=== PATIENT | female | born 1980 | race Caucasian/White ===

== ENCOUNTER 2021-05-21 12:55 | Outpatient (REF) | payer OTHER, SELFPAY ==
--- NOTE | ~2021-05-21 | US_ITS ---
EXAMINATION: US THYROID CLINICAL INFORMATION: Hypothyroidism. COMPARISON: Ultrasound soft tissue head/neck thyroid dated 02/15/2019. TECHNIQUE: Linear transducer grayscale and color Doppler examination with attention to the region of the thyroid. FINDINGS: SIZE: Measurements of the thyroid lobes and nodules are given in sagittal, anteroposterior and transverse dimensions respectively. Right Thyroid Lobe: 5.2 x 1.8 x 2.1 cm, volume 10.2 mL. Previously 5.2 x 1.6 x 1.7 cm, volume 7.4 mL. Parenchyma: The gland echotexture is homogeneous. Thyroid vascularity is normal. Left Thyroid Lobe: Surgically removed. Isthmus: 0.2 cm in maximum AP dimension. Previously 0.2 cm. Comparison with previous exam is difficult. Estimated total number of nodules greater than or equal to 1 cm: 1. Fpga Design Engineer nodules are described as follows: 1. Location: Right mid. Size: 0.3 x 0.4 x 0.3 cm, volume 0.02 mL. Previously: n/a Nodule characteristics: Composition: Mixed cystic and solid (1). Echogenicity: Hypoechoic (2). Shape: Not taller than wide (0). Margins: Smooth (0). Echogenic Foci: None (0). ACR TI-RADS total points: 3 Previous: n/a ACR TI-RADS category: 3 Previous: n/a Significant change in size (>/= 20% in 2 dimensions and minimal increase of 2 mm or 50% or greater increase in volume): Change in features: Change in ACR TI-RADS risk category: n/a 2. Location: Right mid. Size: 1.0 x 1.1 x 0.9 cm, volume 0.5 mL. Previously: 1.2 x 0.8 x 0.9 cm, volume 0.3 mL. Nodule characteristics: Composition: Mixed cystic and solid (1). Echogenicity: Hypoechoic (2). Shape: Not taller than wide (0). Margins: Smooth (0). Echogenic Foci: None (0). ACR TI-RADS total points: 3 Previous: n/a ACR TI-RADS category: 3 Previous: n/a Significant change in size (>/= 20% in 2 dimensions and minimal increase of 2 mm or 50% or greater increase in volume): Change in features: Change in ACR TI-RADS risk category: n/a 3. Location: Right superior. Size: 0.5 x 0.4 x 0.3 cm, volume 0.03 mL. Previously: n/a. Nodule characteristics: Composition: Cystic(0). ACR TI-RADS total points: 0 ACR TI-RADS category: 1 NODES: No lymphadenopathy is seen in the tissue surrounding the thyroid gland. US/US thyroid IMPRESSION: Comparison with previous exam is difficult. The dominant 1 cm nodule in the right middle lobe does not appear appreciably changed. There are 2 newly appreciated nodules in the mid and superior right lobe and the previously identified nodules in the mid and lower right lobe on prior exam are not appreciated. ACR TI-RADS RECOMMENDATION REFERENCE: Ultrasound-guided fine-needle aspiration, followup ultrasound, no further follow up. * TR1 (0 point) and TR 2 (2 points): No FNA or follow up * TR3 (3 points): FNA if more than or equal to 2.5 cm in maximum dimension, followup ultrasound in 1, 3 and 5 years if 1.5 to 2.4 cm in maximum dimension. * TR4 (4-6 points): FNA if more than or equal to 1.5 cm in maximum dimension, followup ultrasound in 1, 2, 3 and 5 years if 1 to 1.4 cm in maximum dimension. * TR5 (more than or equal to 7 points): FNA if more than or equal to 1 cm in maximum dimension, followup ultrasound every year for 5 years if 0.5 to 0.9 cm in maximum dimension. * TR3, TR4 or TR5 nodules that are below the size threshold for follow up receive no follow up.
== END 2021-05-21 12:56 | disposition home or self-care (01) ==
LOC: HO.US 12:55
PROVIDERS: Visit Provider Internal Medicine
DX: E03.9 Hypothyroidism, unspecified (principal)
CPT/HCPCS: 76536

== ENCOUNTER → 2021-10-16 08:37 | Outpatient (BNVA) | payer OTHER, SELFPAY | PROVIDERS: PCP Physician Assistant; Visit Provider Internal Medicine ==

== ENCOUNTER 2022-01-22 12:25 | Outpatient (REF) | payer OTHER, SELFPAY ==
--- NOTE | 2022-01-22 12:31 | ECG_ITS ---
Test Reason : PREOP Blood Pressure : / mmHG Vent. Rate : 075 BPM Atrial Rate : 075 BPM P-R Int : 134 ms QRS Dur : 082 ms QT Int : 358 ms P-R-T Axes : 025 042 021 degrees QTc Int : 399 ms Normal sinus rhythm Normal ECG No previous ECGs available Referred By: Michael Snadhu Electronically Signed By:FELICIANO TIWARI MD
[2022-01-22 12:48] LABS: MANUAL DIFF FLAG NO
[2022-01-22 13:05] LABS: Basophils Percent Auto 0.6 % (0-2); Eosinophils Absolute Auto 0.2 X10*3/uL (0.0-0.4); Hematocrit 40.8 % (37.0-47.0); Hemoglobin 12.8 g/dl (12.0-16.0); Imm Gran Abs Auto 0.02 X10*3/uL (0.00-0.03); Imm Gran Pct Auto 0.4 % (0.0-0.4); Lymphocytes Percent Auto 38.1 % (20-40); Mean Corpuscular HGB Conc 31.4 g/dl (31.0-35.0); Mean Corpuscular Hemoglobin 25.5 pg (27.0-33.0); Mean Corpuscular Volume 81.3 fL (80.0-98.0); Mean Platelet Volume 9.6 fL (9.4-12.3); Monocytes Absolute Auto 0.4 X10*3/uL (0.1-1.2); Monocytes Percent Auto 6.6 % (2-11); Neutrophils Absolute Auto 2.7 x10*3/uL (2.0-8.3); Neutrophils Percent Auto 51.3 % (45-73); Platelet Count 288 X10*3/uL (160-400); Red Blood Count 5.02 X10*6/uL (4.20-5.50); Red Cell Distribution Width 14.5 % (11.0-16.0); White Blood Count 5.3 X10*3/uL (4.8-10.8)
[2022-01-22 13:09] LABS: Prothrombin Time 11.8 SEC (9.9-13.0)
[2022-01-22 13:40] LABS: Alanine Aminotransferase 11 U/L (0-31); Albumin Level 4.3 g/dL (3.5-5.0); Alkaline Phosphatase 95 U/L (39-117); Anion Gap 14 (12-20); Aspartate Amino Transferase 14 U/L (5-31); Bilirubin Total 0.3 mg/dL (0.0-1.0); Blood Urea Nitrogen 10 mg/dL (9-16); Calcium 9.7 mg/dL (8.4-10.2); Carbon Dioxide 23 mmol/L (22-29); Chloride 104 mmol/L (96-108); Estimated Glomerular Filt Rate > 60; Glucose Fasting 105 mg/dL (60-99); Potassium 4.5 mmol/L (3.3-5.1); Sodium 136 mmol/L (135-145); Total Protein 7.8 g/dL (6.5-8.0)
[2022-01-22 13:51] LABS: Vitamin D 25-OH Total 10.2 ng/mL (>30)
[2022-01-22 14:01] LABS: HCG Quantitative < 2 mIU/mL; T4 Thyroxine 8.5 ug/dL (4.5-12.0)
[2022-01-22 14:14] LABS: Estimated Average Glucose 126 mg/dL
[2022-01-23 08:43] LABS: HIV AB/AG Nonreactive (Nonreactive); HIV Num 1 0.05 S/CO (0.00-0.99)
[2022-01-24 01:11] LABS: Triiodothyronine T3 Free 2.9 pg/mL (2.3-4.2)
== END 2022-01-22 12:26 | disposition home or self-care (01) ==
LOC: HO.LAB 12:25
PROVIDERS: Internal Medicine; PCP Physician Assistant; Visit Provider Physician Assistant
DX: Z01.818 Encounter for other preprocedural examination (principal); Z11.4 Encounter for screening for human immunodeficiency virus [HIV]; E55.9 Vitamin D deficiency, unspecified
CPT/HCPCS: 36415; 80053; 82306; 83036; 84436; 84443; 84481; 84702; 85025; 85610; 87389; 93005

== ENCOUNTER 2022-12-23 08:59 | Outpatient (REF) | payer OTHER, SELFPAY ==
[2022-12-23 10:19] LABS: Free T4 (Free Thyroxine) 0.91 ng/dL (0.71-1.85); Thyroid Stimulating Hormone 2.68 uIU/mL (0.32-4.0)
== END 2022-12-23 09:00 | disposition home or self-care (01) ==
LOC: HO.LAB 08:59
PROVIDERS: PCP Physician Assistant; Visit Provider Internal Medicine
DX: E04.2 Nontoxic multinodular goiter (principal)
CPT/HCPCS: 36415; 84439; 84443

== ENCOUNTER 2023-01-12 | Outpatient (REF) | payer OTHER, SELFPAY | END 2023-01-12 00:01 | disposition home or self-care (01) | LOC: CF | PROVIDERS: PCP Physician Assistant; Visit Provider Internal Medicine | DX: E04.2 Nontoxic multinodular goiter (principal); E03.9 Hypothyroidism, unspecified; E55.9 Vitamin D deficiency, unspecified | CPT/HCPCS: 99212 ==

== ENCOUNTER 2023-08-13 10:27 | Outpatient (AMB) | payer OTHER, SELFPAY ==
[2023-08-13 10:38] VITALS: BP 162/110; PULSE 89; O2SAT 100; BMI 37.1
--- NOTE | 2023-08-13 10:38 | MHC.PC.OV ---
Vital Signs 08/13/23 10:38 08/13/23 11:06 Height 5 ft 5 in Weight 223 lb 0.6 oz BMI 37.1 BP 162/110 H 170/102 H Blood Pressure Location Lt brachial Lt brachial Position Sitting Sitting Pulse 89 Pulse Source Pulse Oximeter Pulse Oximetry (%) 100 Oxygen Delivery Method Room Air Intake Visit Reasons: Chronic fatigue and malaise Intake Note: pt states senior care chronic fatigue with no relief. pt states loss of vision, blurry vision and headaches [id number], pt states bilateral leg swelling and soreness Telephone Triage Nurse Required: No Allergies penicillin G Allergy (Unknown, Verified 08/13/23 10:55) Unknown Medication List - Last Reconciled 08/13/23 by BERNARDO Loya hydrochlorothiazide 12.5 mg PO DAILY 90 days Tobacco use date assessed: 08/13/23 HPI Chronic fatigue and malaise HPI Details Patient is a 43-year-old female who presents today for the same day visit due to chronic fatigue. Patient of MARK Sandhu. medical history significant for hypothyroidism vitamin-D deficiency, iron deficiency anemia-patient reports she stopped iron long time ago-due to unable to tolerate, chronic fatigue, hypertension among others. Patient also reports headache and blurry vision for the past 2 weeks. Did not take anything for headache. Currently headache 5/10 scale. She also reports high blood pressures at home, systolic BP in 170s she stopped taking hydrochlorothiazide about 3 months ago. Also reports bruising on her left leg, denies injury. Patient has blood work order from her PCP, she was encouraged to complete her blood work. Denies shortness of breath or chest pain. [facility] Medical History Vitamin D deficiency Multinodular thyroid Hypothyroidism Surgical History H/O surgical procedure History of partial thyroidectomy Family History Father No problems noted. Mother No problems noted. 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 How often do you have a drink containing alcohol?: Never Total Score: 0 Score Reviewed/Action Taken: No ELAINE-7 AMB Questionnaire ELAINE-7 Date ELAINE - 7 assessed: 01/20/23 Source: Developed by Drs. Syed Blake, Mariah Phillips, Gt Boland and colleagues, with an educational refugio from [employer]. Review of Systems Const Denies body aches, Denies chills, Reports fatigue, Denies fever(s) and Reports headache(s) Eyes Reports blurry vision and Reports change in vision ENT Denies dizziness, Denies otalgia, Reports headache(s), Denies nasal discharge, Denies sinus pain and Denies sore throat Card Denies chest pain, Denies edema, Denies lightheadedness and Denies dyspnea Resp Denies cough, Denies dyspnea and Denies wheezing GI Denies abdominal pain, Denies constipation, Denies diarrhea, Denies nausea and Denies vomiting Denies dysuria Musc Denies myalgias Skin/Breast Reports as per HPI and Denies rash Neuro Denies dizziness and Reports headache(s) Endo Reports fatigue Aller/Immun Denies wheezing Physical exam (Primary Care) Vital Signs: Last Vital Signs Pulse 89 08/13/23 10:38 BP 170/102 H 08/13/23 11:06 Pulse Ox 100 08/13/23 10:38 Oxygen Delivery Method Room Air 08/13/23 10:38 BMI result Body Mass Index 37.1 Tobacco/Smoking Status: Tobacco use Status Tobacco use date assessed 08/13/23 08/13/23 10:39 Patient Tobacco Use Status Never used Tobacco 08/13/23 10:39 e-Cigarette/Vaping Use Never Used 08/13/23 10:39 Thrive Assessment: Date of Thrive Assessment Date Thrive assessed 01/20/23 08/13/23 10:39 Const General: cooperative and no acute distress Orientation/consciousness: patient oriented x3 HENMT Head: Yes normocephalic and Yes atraumatic Face and sinus: Yes sinuses nontender Mouth: oropharynx normal and moist mucous membranes Throat: Yes posterior oropharynx normal Eyes General: appearance normal, both eyes and all related structures Pupils: Equal, round and reactive pupils present EOM: EOMs intact bilaterally Neck Neck: Yes normal visual inspection, Yes full ROM and Yes no lymphadenopathy Resp Effort & Inspection: normal respiratory effort and able to speak in complete sentences Auscultation: clear to auscultation bilaterally, no crackles, no rales, no rhonchi and no wheezes Cardio Rate: regular rate Rhythm: regular rhythm Heart sounds: S1 normal heart sound present, S2 normal heart sound present and no murmurs GI Auscultation: normal bowel sounds Skin Other: Fading ecchymosis noted to left lateral lower extremity General skin exam: no rashes or lesions noted Neuro General: patient oriented x3 Cranial nerves: Yes Equal, round and reactive pupils present Gait exam (Neuro): Normal gait present Extrem Other: Trace edema to bilateral lower extremity General: Yes full ROM Assessment and Plan Assessment & Plan (1) HTN (hypertension): Code(s): I10 - Essential (primary) hypertension Qualifiers: Hypertension type: primary hypertension Qualified Code(s): I10 - Essential (primary) hypertension Plan: Blood pressure high in the office today, patient also reports high blood pressures at home Goal BP equal or less than 140/90 Patient is to restart hydrochlorothiazide 12.5 mg daily Monitor blood pressures at home Follow-up with nurse in 2 weeks for BP recheck Low-sodium diet Most likely headache and blurry vision related to high blood pressure Patient also will call for an eye exam Signs and symptoms reviewed when to notify provider or go to the emergency department (2) Chronic fatigue: Code(s): R53.82 - Chronic fatigue, unspecified Plan: Patient is to complete blood work that was ordered by her PCP, history of iron deficiency anemia, patient reports she is unable to tolerate iron supplements and she stopped them sometime ago. If still anemic, would benefit from iron infusions. Plan Follow-up with PCP in 3 months or sooner as needed Medications: Refilled hydrochlorothiazide 12.5 mg PO DAILY 90 days 90 tabs 2RF Z01.818 - Encounter for other preprocedural examination Coding Level of Care Code Est Pt Level 3 (28146) Diagnoses Primary hypertension I10 Hypertension type: primary hypertension Chronic fatigue R53.82
[2023-08-13 11:06] VITALS: BP 170/102
== END 2023-08-13 11:15 | disposition home or self-care (01) ==
PROVIDERS: PCP Physician Assistant; Visit Provider Nurse Practitioner Family
DX: I10 Essential (primary) hypertension (principal); R53.82 Chronic fatigue, unspecified
CPT/HCPCS: 99213

== ENCOUNTER 2024-01-27 13:03 | Outpatient (REF) | payer OTHER, SELFPAY ==
[2024-01-27 14:46] LABS: Free T4 (Free Thyroxine) 0.86 ng/dL (0.71-1.85); Thyroid Stimulating Hormone 2.67 uIU/mL (0.32-4.0)
== END 2024-01-27 13:04 | disposition home or self-care (01) ==
LOC: HO.LAB 13:03
PROVIDERS: PCP Physician Assistant; Visit Provider Internal Medicine Endocrinology, Diabetes & Metabolism
DX: E03.9 Hypothyroidism, unspecified (principal); E04.2 Nontoxic multinodular goiter
CPT/HCPCS: 36415; 84439; 84443

== ENCOUNTER → 2024-06-13 10:15 | Outpatient (BNV) | payer OTHER, SELFPAY | PROVIDERS: PCP Physician Assistant; Visit Provider Radiology Diagnostic Radiology | DX: Z12.31 Encounter for screening mammogram for malignant neoplasm of breast (principal) | CPT/HCPCS: 77063; 77067 ==

== ENCOUNTER 2024-06-13 10:19 | Outpatient (REF) | payer OTHER, SELFPAY ==
--- NOTE | ~2024-06-13 | MM_ITS ---
EXAMINATION: MM SCREENING DIGITAL BREAST TOMOSYNTHESIS, BILATERAL CLINICAL INFORMATION: Screening. Asymptomatic. COMPARISON: Mammography: This is a baseline mammogram. TECHNIQUE: Digital breast tomosynthesis is performed in both the craniocaudal and mediolateral oblique views along with computer-aided detection (CAD). Synthesized 2D images are generated from the tomosynthesis. FINDINGS: There are scattered areas of fibroglandular density (ACR BI-RADS breast composition Category b). There are no significant masses, abnormal calcifications, or other abnormalities. MM/MM tomosynthesis screening BI IMPRESSION: No mammographic evidence of malignancy. ASSESSMENT: BI-RADS BI-RADS 1 - Negative RECOMMENDATION: Routine annual mammography screening. 1 year F/U This examination should not preclude the clinical evaluation of a suspicious palpable abnormality. This patient's information was entered into a reminder system with a target due date for their next mammogram. Electronically signed by: Shirley Soni MD 07/07/2024 10:32 PM EDT
== END 2024-06-13 10:20 | disposition home or self-care (01) ==
LOC: HO.MAMMO 10:19
PROVIDERS: PCP Physician Assistant; Visit Provider Physician Assistant
DX: Z12.31 Encounter for screening mammogram for malignant neoplasm of breast (principal)
CPT/HCPCS: 77063; 77067

== ENCOUNTER 2024-09-20 08:16 | Outpatient (REF) | payer OTHER, SELFPAY ==
[2024-09-20 10:46] LABS: Free T4 (Free Thyroxine) 0.95 ng/dL (0.71-1.85); Thyroid Stimulating Hormone 3.59 uIU/mL (0.32-4.0)
== END 2024-09-20 08:17 | disposition home or self-care (01) ==
LOC: HO.LAB 08:16
PROVIDERS: PCP Physician Assistant; Referring Provider Physician Assistant; Visit Provider Internal Medicine Endocrinology, Diabetes & Metabolism
DX: E04.2 Nontoxic multinodular goiter (principal); E03.9 Hypothyroidism, unspecified
CPT/HCPCS: 36415; 84439; 84443

== ENCOUNTER 2025-04-24 09:15 | Outpatient (REF) | payer OTHER, SELFPAY ==
--- NOTE | ~2025-04-24 | XR_ITS ---
EXAMINATION: XR CHEST 2 VIEWS HISTORY: R91.8 - Other nonspecific abnormal finding of lung field COMPARISON: There are no prior studies available for comparison. FINDINGS: PA and lateral views of the chest are submitted. The lungs are expanded and clear. There is no pleural effusion, pneumothorax, or pulmonary vascular congestion. The heart is normal in size. The bones are intact. XR/XR chest 2V IMPRESSION: Normal examination of the chest. Electronically signed by: Syed Branham MD 04/24/2025 11:43 AM EDT
[2025-04-24 11:54] LABS: Hematocrit 38.0 % (37.0-47.0); Hemoglobin 12.3 g/dl (12.0-16.0); Mean Corpuscular HGB Conc 32.4 g/dl (31.0-35.0); Mean Corpuscular Hemoglobin 26.3 pg (27.0-33.0); Mean Corpuscular Volume 81.2 fL (80.0-98.0); NRBC Abs Auto 0.000 X10*3/uL (0.0-0.012); NRBC Pct Auto 0.0 /100WBC (0.0-0.2); Platelet Count 280 X10*3/uL (160-400); Red Blood Count 4.68 X10*6/uL (4.20-5.50); White Blood Count 5.2 X10*3/uL (4.8-10.8)
[2025-04-24 12:49] LABS: Free T4 (Free Thyroxine) 0.85 ng/dL (0.71-1.85); Thyroid Stimulating Hormone 2.64 uIU/mL (0.32-4.0)
[2025-04-24 12:51] LABS: Hemoglobin A1C 142.2338 umol/L; Total Hemoglobin (HGBA1C) 3337.2254 umol/L
[2025-04-24 14:15] LABS: Anion Gap 11 (12-20)
[2025-04-24 14:20] LABS: Alanine Aminotransferase 13 U/L (0-31); Albumin Level 4.4 g/dL (3.5-5.0); Alkaline Phosphatase 87 U/L (39-117); Aspartate Amino Transferase 26 U/L (5-31); Blood Urea Nitrogen 10 mg/dL (9-16); Calcium 9.3 mg/dL (8.4-10.2); Carbon Dioxide 25 mmol/L (22-29); Chloride 110 mmol/L (96-108); Cholesterol 202 mg/dL (<200); Estimated Glomerular Filt Rate > 60; HDL Cholesterol 54 mg/dL (>40); Iron 70 mcg/dL (30-160); Percent Iron Saturation 20 % (15-50); Potassium 3.9 mmol/L (3.3-5.1); Sodium 142 mmol/L (135-145); Total Iron Binding Capacity 344 mcg/dL (228-428); Total Protein 7.4 g/dL (6.5-8.0); Triglycerides 195 mg/dL (<150); Unsaturated Iron Binding 274 ug/dL
[2025-04-24 14:58] LABS: Microalbum/Creatinine Ratio Ur 12.1 ug/mg cr (<30)
== END 2025-04-24 09:16 | disposition home or self-care (01) ==
LOC: HO.XRAY 09:15
PROVIDERS: PCP Physician Assistant; Visit Provider Student in an Organized Health Care Education/Training Program
DX: I10 Essential (primary) hypertension (principal); K57.92 Diverticulitis of intestine, part unspecified, without perforation or abscess without bleeding; R20.2 Paresthesia of skin; E66.812 Obesity, class 2; Z68.35 Body mass index [BMI] 35.0-35.9, adult; R73.09 Other abnormal glucose; E03.9 Hypothyroidism, unspecified; F41.1 Generalized anxiety disorder; E04.2 Nontoxic multinodular goiter; Z79.899 Other long term (current) drug therapy; R91.8 Other nonspecific abnormal finding of lung field; D50.0 Iron deficiency anemia secondary to blood loss (chronic); E78.9 Disorder of lipoprotein metabolism, unspecified; E55.9 Vitamin D deficiency, unspecified; Z13.30 Encounter for screening examination for mental health and behavioral disorders, unspecified; Z13.31 Encounter for screening for depression
CPT/HCPCS: 36415; 71046; 80053; 80061; 82043; 82306; 82570; 83036; 83540; 84439; 84443; 85027; 96127; 99212

== ENCOUNTER 2025-04-24 09:15 | Outpatient (AMB) | payer OTHER, SELFPAY ==
--- NOTE | 2025-04-24 09:17 | MHC.OFFVIS ---
Vital Signs 04/24/25 09:20 Height 5 ft 6 in Weight 218 lb 11.177 oz BMI 35.3 BP 160/110 H Blood Pressure Location Lt brachial Position Sitting Pulse 87 Pulse Source Pulse Oximeter Pulse Oximetry (%) 100 Oxygen Delivery Method Room Air Intake Visit Reasons: Hypothyroidism Intake Note: Patient present today for Hypothyroidism office visit. Medical Information Officer Required: No Accompanied by: Self / Same As Patient Allergies penicillin G Allergy (Unknown, Verified 04/24/25 09:23) Unknown Medication List - Last Reconciled 04/24/25 by Vesna Welch MD hydrochlorothiazide 25 mg PO QAM lisinopril 5 mg PO DAILY HPI Comments Details: 44-year-old female coming in today for follow up of multinodular goiter status post left hemithyroidectomy and hypothyroidism. HPI She was previously followed by Dr. Bishop, last visit December 2022 Apparently prior to that she was at [facility], however was discharged from the practice because of no shows. 03/18/2016: Ultrasound of the thyroid per chart review revealed numerous bilateral thyroid nodules. 05/29/2016: FNA of the right-sided dominant (right mid lower 1.7 X1.2 X 0.9 cm) nodule was [place] category 2, benign cytology. Apparently additional FNA of a left sided nodule was atypical, however subsequently she had a left-sided thyroid lobectomy 06/24/2016 with pathology consistent with multinodular goiter with focal nuclear atypia and no evidence of malignancy. Then she was lost to follow up. And then she reestablished care with Dr. Bishop in 2019. 11/10/2019: FNA of the right midpole nodule with benign cytology. Also has a history of hypothyroidism. Was apparently on levothyroxine 50 mcg daily but then stopped it sometime in 2020. Ultrasound thyroid from 05/21/2021 showed a right midpole subcentimeter TR 3 nodule, a right midpole 1 cm TR 3 nodule, right superior subcentimeter TR 1 nodule. Plan was for her to follow up with repeat imaging in about a year when she was last seen in December [address] Bishop, but seems like she did not follow up. Patient currently denies heat or cold intolerance, diarrhea or constipation, hair loss, anxiety, weight changes, mood changes,, changes in appearance of eyes or vision changes, tremors, increased diaphoresis or dry skin. ?Reports tiredness. reports some intermittent palpitations. Reports some difficulty swallowing for the past 6 months. Intermittent hoarsenss. reports some neck fullness over the past few months. Patient denies any history of childhood neck radiation. Denies having ever used lithium, amiodarone or biotin supplements. Patient denies any family history of thyroid cancer. neice and sister had thyroid issues. Physical exam General: sitting comfortably in no acute distress HEENT: normocephalic/atraumatic, Neck: supple, Cardiac: normal heart sounds Pulm: normal breath sounds B/L, no added breath sounds Abd: not distended, no tenderness Extremities: no edema, no signs of myxedema Neuro: AAO x3, Speech: normal, no facial droop, moving all 4 extremities Laboratory Tests 09/20/24 08:35 TSH 3.59 Free T4 0.95 US THYROID 05/21/21 CLINICAL INFORMATION: Hypothyroidism. COMPARISON: Ultrasound soft tissue head/neck thyroid dated 02/15/2019. TECHNIQUE: Linear transducer grayscale and color Doppler examination with attention to the region of the thyroid. FINDINGS: SIZE: Measurements of the thyroid lobes and nodules are given in sagittal, anteroposterior and transverse dimensions respectively. Right Thyroid Lobe: 5.2 x 1.8 x 2.1 cm, volume 10.2 mL. Previously 5.2 x 1.6 x 1.7 cm, volume 7.4 mL. Parenchyma: The gland echotexture is homogeneous. Thyroid vascularity is normal. Left Thyroid Lobe: Surgically removed. Isthmus: 0.2 cm in maximum AP dimension. Previously 0.2 cm. Comparison with previous exam is difficult. Estimated total number of nodules greater than or equal to 1 cm: 1. Esthetician/Spa Coordinator nodules are described as follows: 1. Location: Right mid. Size: 0.3 x 0.4 x 0.3 cm, volume 0.02 mL. Previously: n/a Nodule characteristics: Composition: Mixed cystic and solid (1). Echogenicity: Hypoechoic (2). Shape: Not taller than wide (0). Margins: Smooth (0). Echogenic Foci: None (0). ACR TI-RADS total points: 3 Previous: n/a ACR TI-RADS category: 3 Previous: n/a Significant change in size (>/= 20% in 2 dimensions and minimal increase of 2 mm or 50% or greater increase in volume): Change in features: Change in ACR TI-RADS risk category: n/a 2. Location: Right mid. Size: 1.0 x 1.1 x 0.9 cm, volume 0.5 mL. Previously: 1.2 x 0.8 x 0.9 cm, volume 0.3 mL. Nodule characteristics: Composition: Mixed cystic and solid (1). Echogenicity: Hypoechoic (2). Shape: Not taller than wide (0). Margins: Smooth (0). Echogenic Foci: None (0). ACR TI-RADS total points: 3 Previous: n/a ACR TI-RADS category: 3 Previous: n/a Significant change in size (>/= 20% in 2 dimensions and minimal increase of 2 mm or 50% or greater increase in volume): Change in features: Change in ACR TI-RADS risk category: n/a 3. Location: Right superior. Size: 0.5 x 0.4 x 0.3 cm, volume 0.03 mL. Previously: n/a. Nodule characteristics: Composition: Cystic(0). ACR TI-RADS total points: 0 ACR TI-RADS category: 1 NODES: No lymphadenopathy is seen in the tissue surrounding the thyroid gland. US/US thyroid IMPRESSION: Comparison with previous exam is difficult. The dominant 1 cm nodule in the right middle lobe does not appear appreciably changed. There are 2 newly appreciated nodules in the mid and superior right lobe and the previously identified nodules in the mid and lower right lobe on prior exam are not appreciated. [facility] Medical History Vitamin D deficiency Multinodular thyroid Hypothyroidism Surgical History H/O surgical procedure History of partial thyroidectomy Family History Father No problems noted. Mother No problems noted. 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 She was last seen in 2022, in the plan was for her to come back in 1 year with a repeat ultrasound but then she did not follow up.03/18/2016: Ultrasound of the thyroid per chart review revealed numerous bilateral thyroid nodules. 05/29/2016: FNA of the right-sided dominant (right mid lower 1.7 X1.2 X 0.9 cm) nodule was [place] category 2, benign cytology. Apparently additional FNA of a left sided nodule was atypical, however subsequently she had a left-sided thyroid lobectomy 06/24/2016 with pathology consistent with multinodular goiter with focal nuclear atypia and no evidence of malignancy. Then she was lost to follow up. And then she reestablished care with Dr. Bishop in 2019. 11/10/2019: FNA of the right midpole nodule with benign cytology. Also has a history of hypothyroidism. Was apparently on levothyroxine 50 mcg daily but then stopped it sometime in 2020. Ultrasound thyroid from 05/21/2021 showed a right midpole subcentimeter TR 3 nodule, a right midpole 1 cm TR 3 nodule, right superior subcentimeter TR 1 nodule. Plan was for her to follow up with repeat imaging in about a year when she was last seen in December [address] Bishop, but seems like she did not follow up. At this point she is reporting new compressive symptoms. I will have her do a repeat thyroid ultrasound. Last TFTs from July 2024 were normal, we will order repeat TFTs. Plan: -ordered ultrasound of the thyroid -ordered TSH and free T4 -follow up in 5 weeks to discuss results (2) Hypothyroidism: Code(s): E03.9 - Hypothyroidism, unspecified Category: Medical Qualifiers: Hypothyroidism type: acquired Qualified Code(s): E03.9 - Hypothyroidism, unspecified Plan: History of hypothyroidism, was on levothyroxine 50 mcg daily but then discontinued in 2020 of her own accord. Most recent TFTs from July 2024 were normal. At this point we will repeat TFTs. Plan : -ordered TSH and free T4 -Follow up in 5 weeks to discuss results (3) HTN (hypertension): Code(s): I10 - Essential (primary) hypertension Category: Medical Qualifiers: Hypertension type: primary hypertension Qualified Code(s): I10 - Essential (primary) hypertension Plan: Blood pressure noted to be elevated in clinic today. Patient has been taking hydrochlorothiazide and lisinopril. She says blood pressure has been elevated for the past few months associated with some headaches. She has not had recent follow up with PCP. I have messaged her PCP regarding elevated blood pressure. Told patient importance of follow up with PCP. Plan I spent 30 minutes in reviewing the record, seeing the patient and documenting in the medical record. Orders: Orders Thyroid Stimulating Hormone Today E03.9 - Hypothyroidism, unspecified, E04.2 - Nontoxic multinodular goiter Free T4 (Free Thyroxine) Today E03.9 - Hypothyroidism, unspecified, E04.2 - Nontoxic multinodular goiter US thyroid Today E04.2 - Nontoxic multinodular goiter Patient Instructions: Do ultrasound of the thyroid , someone will call you to schedule this Do thyroid blood work , orders are in Follow up in 5 weeks to discuss results Coding Level of Care Code Est Pt Level 4 (27000) Diagnoses Multinodular thyroid E04.2 Acquired hypothyroidism E03.9 Hypothyroidism type: acquired Primary hypertension I10 Hypertension type: primary hypertension Time Spent (min) 30
[2025-04-24 09:20] VITALS: BP 160/110; PULSE 87; O2SAT 100; BMI 35.3
--- OUTSIDE RECORDS SUMMARY | 2025-04-24 09:43 | XMS_ITS | Clinical Summary ---
Author Organization [facility] Address [address] [place] [address] Care Team Providers Care Pond Sawyer Name Role Phone Unavailable Primary Care Provider Unavailabl e Social History Tobacco Use Types Packs/Day Years Used Date Smoking Tobacco: Never Assessed Sex and Gender Information Value Date Recorded Sex Assigned at Not on file Gender Identity Not on file Sexual Orientation Not on file Plan of Treatment Not on file
--- OUTSIDE RECORDS SUMMARY | 2025-04-24 09:43 | XMS_ITS | Clinical Summary ---
Author Organization [facility] Address [address] [place] [address] Phone Care Team Providers [facility] Name Role Phone Physician, Pcp Unknown Primary Care Provider Antonella vailable Allergies Active Allergy Reactions Criticality Noted Date Comments Amoxicillin Hives 05/23/2015 Penicillins Hives 05/23/2015 Medications gabapentin (NEURONTIN) 300 mg capsule Start with one cap po QHS x 3 days, increase to one cap po BID x 3 days, then increase to one cap po TID 7 Active oxyCODONE (OXY-IR) 5 mg immediate release capsule Take 1 capsule (5 mg total) by mouth every 6 (six) hours if needed for severe pain. Max Daily Amount: 20 mg 8 capsule 5 Active metroNIDAZOLE (FLAGYL) 500 mg tablet Take 1 tablet (500 mg total) by mouth 3 (three) times a day for 10 days. Do not use mouth wash or consume alcohol until 48 hours after last dose 30 each 5 04/03/20 25 ciprofloxacin (CIPRO) 500 mg tablet Take 1 tablet (500 mg total) by mouth 2 (two) times a day for 7 days. 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 Fibromyalgia 05/13/2017 Fibroid, uterine 07/02/2015 Multiple thyroid nodules 05/23/2015 Obesity 05/23/2015 Encounters Date Type Department Care Team Description 03/24/2025 3:23 PM EDT - 03/24/2025 5:50 PM EDT Emergency [facility] Emergency [address] [place] [address] Diverticulitis (Primary Dx) Discharge Disposition: Home or Self Care from Last 3 Months Social History Tobacco Use Types Packs/Day Years Used Date Smoking Tobacco: Never Assessed Comments Unknown Sex and Gender Information Value Date Recorded Sex Assigned at Not on file Legal Sex Female 3:58 AM EST Gender Identity Not on file Sexual Orientation Not on file Last Filed Vital Signs Vital Sign Reading Time Taken Comments Blood Pressure 142/103 03/24/2025 12:58 PM EDT Pulse 98 03/24/2025 12:58 PM EDT Temperature 36.5 C (97.7 F) 03/24/2025 12:58 PM EDT Respiratory Rate 18 03/24/2025 12:58 PM EDT Oxygen Saturation 98% 03/24/2025 12:58 PM EDT Inhaled Oxygen Concentration - - Weight 90.7 kg (200 lb) 03/24/2025 12:58 PM EDT Height 165.1 cm (5' 5 ) 03/24/2025 12:58 PM EDT Body Mass Index 33.28 03/24/2025 12:58 PM EDT Plan of Treatment Health Maintenance Due Date Last Done Comments Breast Cancer Screening 1982 HPV Vaccines (3 - 3-dose series) 07/11/2008 04/18/2008, 07/21/2007 Hepatitis B Vaccines (2 of 3 - 19+ 3-dose series) 09/07/2017 08/10/2017 Cervical Cancer Screening: P ap Smear 07/02/2018 07/02/2015, 07/02/2015 COVID-19 Vaccine (2023-2 5 season) 2024 08/07/2021, 07/17/2021, 12/28/2020 Cholesterol Screening (Lipid Panel) 11/15/2024 Depression Screening 11/15/2024 Social Influencers of Health Screening 11/15/2024 Influenza Vaccine (#1) 2025 DTaP,Tdap,and Td Vaccines (2 - Td or Tdap) 11/23/2028 11/23/2018 HIV Screening Completed 07/02/2015 Hepatitis C Screening Completed 07/02/2015 MMR Vaccines Aged Out 08/10/2017 No longer eligi ble based on patient's age to complete this topic HIB Vaccines Aged Out No longer eligi ble based on patient's age to complete this topic Hepatitis A Vaccines Aged Out No long er eligible based on patient's age to complete this topic IPV Vaccines Aged Out No longer eligi ble based on patient's age to complete this topic Meningococcal ACWY Vaccine Aged Out N o longer eligible based on patient's age to complete this topic Meningococcal B Vaccine Aged Out No l onger eligible based on patient's age to complete this topic Pneumococcal Vaccine: Pediatrics (0 to 5 Years) and At-Risk Patients (6 to 64 Years) Aged Out No longer eligible b ased on patient's age to complete this topic RSV Immunization Patients Under 20 months Aged Out No longer eligible b ased on patient's age to complete this topic Varicella Vaccines Aged Out No longer eligible based on patient's age to complete this topic Procedures Procedure Name Priority Date/Time Associated Diagnosis Comments CT ABDOMEN PELVIS W CONTRAST STAT 03/24/2025 5:01 PM EDT POC , URINE DIAGNOSTIC STAT 03/24/2025 1:40 PM EDT LAO URINE CULTURE TUBE STAT 03/24/2025 1:39 PM EDT URINALYSIS WITH REFLEX MICROSCOPIC AND CULTURE STAT 03/24/2025 1:39 PM EDT URINALYSIS WITH REFLEX MICROSCOPIC AND CULTURE STAT 03/24/2025 1:39 PM EDT CULTURE URINE STAT 03/24/2025 1:39 PM EDT CBC WITH AUTO DIFFERENTIAL STAT 03/24/2025 1:37 PM EDT COMPREHENSIVE METABOLIC PANEL STAT 03/24/2025 1:37 PM EDT CBC AND DIFFERENTIAL STAT 03/24/2025 1:37 PM EDT HEPATITIS C SCREENING Routine 07/02/2015 HIV SCREENING Routine 07/02/2015 HPV Routine 07/02/2015 from Last 3 Months or Most Recently Relevant to Health Maintenance Results * CT Abdomen Pelvis w Contrast (03/24/2025 5:01 PM EDT) Anatomical Region Laterality Modality Body Computed Tomogra phy 03/24/2025 5:16 PM EDT Impressions 03/24/2025 5:16 PM EDT Impression: 1. Mild uncomplicated sigmoid colonic diverticulitis. This document has been electronically signed by: Maikol Finn MD on 03/24/2025 17:16:45 Narrative 03/24/2025 5:16 PM EDT INDICATION: suprapubic pain Exam: Contrast-enhanced CT abdomen and pelvis with multiplanar reformats. Comparison: None. Findings: CT abdomen: Lung bases are clear. Liver is free of focal lesions and ductal dilatation. Gallbladder is unremarkable. Spleen is unremarkable. Pancreas and adrenal glands appear unremarkable. Kidneys appear unremarkable. No free intraperitoneal fluid or retroperitoneal masses or adenopathy. Abdominal aorta is normal caliber. Bowel loops reveal a mildly inflamed diverticulum of the proximal sigmoid colon (3; 130) with mild pericolonic stranding, compatible with uncomplicated diverticulitis. No perforation or abscess. No other abnormal bowel wall thickening or distention. The appendix is unremarkable. CT pelvis: Uterus is retroverted. Uterus and adnexal structures otherwise unremarkable. Urinary bladder is free of gross filling defects. No pelvic masses, fluid or adenopathy. Anterior abdominal wall reveals sequela of remote scarring, possibly related to prior . Osseous structures reveal no destructive osseous lesions. Procedure Note Maikol Finn MD - 03/24/2025 INDICATION: suprapubic pain Exam: Contrast-enhanced CT abdomen and pelvis with multiplanarreformats. Comparison: None. Findings: CT abdomen: Lung bases are clear. Liver is free of focal lesions and ductal dilatation. Gallbladder is unremarkable. Spleen is unremarkable. Pancreas and adrenal glands appear unremarkable. Kidneys appear unremarkable. No free intraperitoneal fluid or retroperitoneal masses or adenopathy. Abdominal aorta is normal caliber. Bowel loops reveal a mildly inflamed diverticulum of the proximalsigmoid colon (3; 130) with mild pericolonic stranding, compatible with uncomplicated diverticulitis. No perforation or abscess. No otherabnormal bowel wall thickening or distention. The appendix is unremarkable. CT pelvis: Uterus is retroverted. Uterus and adnexal structuresotherwise unremarkable. Urinary bladder is free of gross filling defects. Nopelvic masses, fluid or adenopathy. Anterior abdominal wall reveals sequela of remote scarring, possibly related to prior . Osseous structures reveal no destructive osseous lesions. IMPRESSION: Impression: 1. Mild uncomplicated sigmoid colonic diverticulitis. This document has been electronically signed by: Maikol Finn MD on 03/24/2025 17:16:[address] PROCEDURES Final Re sult * POC , urine manually resulted (03/24/2025 1:40 PM EDT) Pathologist [facility] HCG, Ur POC Negative Negative POC hCG Int QC Pass? Yes Yes Urine Urine specimen obtained by clean catch procedure / Unknown 03/24/2025 1:40 PM EDT Carolina Hortany Chao DO POINT OF CARE TEST ENTER/ EDIT ORDERABLES Final Result * (ABNORMAL) Urinalysis with reflex microscopic and culture (03/24/2025 1:39 PM EDT) Specific [place] Urine 1.032(H) 1.003 - 1.030 LAB URINALYSIS - AUTOMATED METHOD 03/24/2025 2:27 PM EDT [facility] pH, Urine 5.5 5.0 - 8.0 pH LAB URINALYSIS - AUTOMATED METHOD 03/24/2025 2:27 PM EDT [facility] Leukocytes, Urine Trace(A) Negative LAB URINALYSIS - AUTOMATED METHOD 03/24/2025 2:27 PM [facility] Nitrite, Urine Negative Negative LAB URINALYSIS - AUTOMATED METHOD 03/24/2025 2:27 PM [facility] Protein, Urine 100(A) <=Trace mg/dL LAB URINALYSIS - AUTOMATED METHOD 03/24/2025 2:27 PM [facility] Glucose, Urine Negative Negative mg/dL LAB URINALYSIS - AUTOMATED METHOD 03/24/2025 2:27 PM [facility] Ketones, Urine 15(A) Negative mg/dL LAB URINALYSIS - AUTOMATED METHOD 03/24/2025 2:27 PM [facility] Urobilinogen , Urine 1.0 0.2 - 1.0 mg/dL LAB URINALYSIS - AUTOMATED METHOD 03/24/2025 2:27 PM [facility] Bilirubin, Urine Small(A) Negative LAB URINALYSIS - AUTOMATED METHOD 03/24/2025 2:27 PM [facility] Blood, Urine Large(A) Negative LAB URINALYSIS - AUTOMATED METHOD 03/24/2025 2:27 PM [facility] RBC, Urine 1,117.1(H) 0 - 4 /HPF LAB URINALYSIS - AUTOMATED METHOD 03/24/2025 2:27 PM [facility] WBC, Urine 2.7 0 - 4 /HPF LAB URINALYSIS - AUTOMATED METHOD 03/24/2025 2:27 PM [facility] Squamous Epithelial, Urine 39 0 - 60 /LPF LAB URINALYSIS - AUTOMATED METHOD 03/24/2025 2:27 PM [facility] Bacteria, Urine Negative Negative /HPF LAB URINALYSIS - AUTOMATED METHOD 03/24/2025 2:27 PM [facility] Hyaline Casts, Urine 0.0 0 - 3 /LPF LAB URINALYSIS - AUTOMATED METHOD 03/24/2025 2:27 PM EDT [facility] Urine Urine specimen obtained by clean catch procedure / Unknown Non-blood Collection / Unknown 03/24/2025 1:39 PM EDT 03/24/2025 2:07 PM EDT us Carolina Woodard Michaelveto Guidry DO LAB URINE ORDERABLES Lakisha l Result Performing Organization Address [facility]/ZIP Co de Phone Number [facility] [address] [place] [address], [place] [phone] * Lao urine culture tube (03/24/2025 1:39 PM EDT) Extra Tube Hold for add-ons. 03/24/2025 4:01 PM EDT [facility] Comment:Auto resulted. Urine Urine specimen obtained by clean catch procedure / Unknown Non-blood Collection / Unknown 03/24/2025 1:39 PM EDT 03/24/2025 2:07 PM EDT us Zoltanric Vance Michaelveto Guidry DO LAB URINE ORDERABLES Lakisha l Result Performing Organization Address [facility] Co de Phone Number [facility] [address] [place] [address], [place] [phone] * Culture urine (03/24/2025 1:39 PM EDT) Culture, Urine No growth 03/26/2025 10:14 AM EDT [facility] Urine Urine specimen obtained by clean catch procedure / Unknown Non-blood Collection / Unknown 03/24/2025 1:39 PM EDT 03/24/2025 2:27 PM EDT us Figueroa Vance Michaelveto Guidry DO LAB MICROBIOLOGY - GENERA L ORDERABLES Final Result Performing Organization Address City/[facility]/ZIP Co de Phone Number [facility] [address] [place] [address], * (ABNORMAL) CBC auto differential (03/24/2025 1:37 PM EDT) [facility] WBC 6.1 4.8 - 10.8 K/mcL LAB HEMETOLOGY METHOD 03/24/2025 2:23 PM EDT [facility] RBC 4.90(H) 3.80 - 4.80 M/mcL LAB HEMETOLOGY METHOD 03/24/2025 2:23 PM EDT [facility] Hemoglobin 13.1 11.5 - 16.0 g/dL LAB HEMETOLOGY METHOD 03/24/2025 2:23 PM EDT [facility] Hematocrit 41.3 35.0 - 47.0 % LAB HEMETOLOGY METHOD 03/24/2025 2:23 PM EDT [facility] MCV 84.1 79.0 - 98.0 FL LAB HEMETOLOGY METHOD 03/24/2025 2:23 PM EDT [facility] MCH 26.7(L) 27.0 - 32.0 pcg LAB HEMETOLOGY METHOD 03/24/2025 2:23 PM EDT [facility] MCHC 31.7(L) 32.0 - 37.0 g/dL LAB HEMETOLOGY METHOD 03/24/2025 2:23 PM EDT [facility] RDW 15.1(H) 11.0 - 15.0 % LAB HEMETOLOGY METHOD 03/24/2025 2:23 PM EDT [facility] Platelets 305 130 - 400 K/mcL LAB HEMETOLOGY METHOD 03/24/2025 2:23 PM EDT [facility] MPV 10.0 7.0 - 11.0 FL LAB HEMETOLOGY METHOD 03/24/2025 2:23 PM EDT [facility] NRBC 0.0 <1.0 % LAB HEMETOLOGY METHOD 03/24/2025 2:23 PM [facility] NRBC Absolute 0.00 <0.10 K/mcL LAB HEMETOLOGY METHOD 03/24/2025 2:23 PM [facility] Neutrophils Relative 50.5 % LAB HEMETOLOGY METHOD 03/24/2025 2:23 PM [facility] Lymphocytes Relative 39.1 % LAB HEMETOLOGY METHOD 03/24/2025 2:23 PM [facility] Monocytes Relative 7.4 % LAB HEMETOLOGY METHOD 03/24/2025 2:23 PM [facility] Eosinophils Relative 2.0 % LAB HEMETOLOGY METHOD 03/24/2025 2:23 PM [facility] Basophils Relative 0.8 % LAB HEMETOLOGY METHOD 03/24/2025 2:23 PM [facility] Immature Granulocytes Relative 0.2 % LAB HEMETOLOGY METHOD 03/24/2025 2:23 PM [facility] Neutrophils Absolute 3.08 1.50 - 7.00 K/mcL LAB HEMETOLOGY METHOD 03/24/2025 2:23 PM [facility] Lymphocytes Absolute 2.38 1.00 - 5.00 K/mcL LAB HEMETOLOGY METHOD 03/24/2025 2:23 PM [facility] Monocytes Absolute 0.45 0.20 - 1.00 K/mcL LAB HEMETOLOGY METHOD 03/24/2025 2:23 PM [facility] Eosinophils Absolute 0.12 0.00 - 0.50 K/mcL LAB HEMETOLOGY METHOD 03/24/2025 2:23 PM [facility] Basophils Absolute 0.05 0.00 - 0.20 K/mcL LAB HEMETOLOGY METHOD 03/24/2025 2:23 PM [facility] Immature Granulocytes Absolute 0.01 0.00 - 0.03 K/mcL LAB HEMETOLOGY METHOD 03/24/2025 2:23 PM EDT [facility] Blood Venous blood specimen / Unknown Venipuncture / Unknown 03/24/2025 1:37 PM EDT 03/24/2025 2:07 PM EDT us Carolina Guidry DO LAB BLOOD ORDERABLES Lakisha l Result [facility] [address] [place] [address], [place] [phone] * Comprehensive metabolic panel (03/24/2025 1:37 PM EDT) Sodium 141 133 - 145 mmol/L LAB CHEMISTRY METHOD 03/24/2025 2:55 PM [facility] Potassium 3.9 3.5 - 5.5 mmol/L LAB CHEMISTRY METHOD 03/24/2025 2:55 PM [facility] Chloride 107 96 - 110 mmol/L LAB CHEMISTRY METHOD 03/24/2025 2:55 PM [facility] CO2 27 21 - 32 mmol/L LAB CHEMISTRY METHOD 03/24/2025 2:55 PM [facility] Anion Gap 7 3 - 11 LAB CHEMISTRY METHOD 03/24/2025 2:55 PM [facility] Glucose 91 70 - 100 mg/dL LAB CHEMISTRY METHOD 03/24/2025 2:55 PM [facility] BUN 10 5 - 25 mg/dL LAB CHEMISTRY METHOD 03/24/2025 2:55 PM [facility] Creatinine 0.73 0.50 - 1.10 mg/dL LAB CHEMISTRY METHOD 03/24/2025 2:55 PM [facility] eGFR 105 >=60 mL/min/1. 73m2 LAB CHEMISTRY METHOD 03/24/2025 2:55 PM [facility] Comment:Calculation based on the Chronic Kidney Disease Epidemiology Collaboration (CKD-EPI) equation refit without adjustment for race. BUN/Creatinine Ratio 13.7 LAB CHEMISTRY METHOD 03/24/2025 2:55 PM EDT [facility] Calcium 9.3 8.5 - 10.5 mg/dL LAB CHEMISTRY METHOD 03/24/2025 2:55 PM [facility] AST (SGOT) 14 10 - 42 unit/L LAB CHEMISTRY METHOD 03/24/2025 2:55 PM [facility] ALT (SGPT) 18 10 - 60 unit/L LAB CHEMISTRY METHOD 03/24/2025 2:55 PM [facility] Alkaline Phosphatase 106 42 - 121 unit/L LAB CHEMISTRY METHOD 03/24/2025 2:55 PM [facility] Total Protein 7.8 6.0 - 8.0 g/dL LAB CHEMISTRY METHOD 03/24/2025 2:55 PM EDT [facility] Albumin 3.6 3.2 - 5.0 g/dL LAB CHEMISTRY METHOD 03/24/2025 2:55 PM [facility] Total Bilirubin 0.4 0.0 - 1.4 mg/dL LAB CHEMISTRY METHOD 03/24/2025 2:55 PM [facility] Blood Venous blood specimen / Unknown Venipuncture / Unknown 03/24/2025 1:37 PM EDT 03/24/2025 2:07 PM EDT Carolina Guidry DO LAB BLOOD ORDERABLES Lakisha l Result [facility] [address] [place] [address], [place] [phone] * Cervical Cancer Screening: HPV (07/02/2015) Cervical Cancer Screening: HPV Negative, Abstracted Historical Provider HEALTH MAINTENANCE Final Result * HIV Screening (07/02/2015) HIV Screening Abstracted us Historical Provider HEALTH MAINTENANCE Final Result * Hepatitis C Screening (07/02/2015) Hepatitis C Screening Abstracted us Historical Provider HEALTH MAINTENANCE Final Result from Last 3 Months or Most Recently Relevant to Health Maintenance Insurance [facility] [employer] Care Teams Clinic Lpn Relationship Specialty Start Date End Date Physician, Pcp Unknown PCP - General 03/24/25
== END 2025-04-24 09:34 | disposition home or self-care (01) ==
LOC: HO.ENCR 09:16
PROVIDERS: PCP Physician Assistant; Visit Provider Student in an Organized Health Care Education/Training Program
DX: E04.2 Nontoxic multinodular goiter (principal); E03.9 Hypothyroidism, unspecified; I10 Essential (primary) hypertension
CPT/HCPCS: 99214

== ENCOUNTER 2025-04-24 10:26 | Outpatient (AMB) | payer OTHER, SELFPAY ==
--- NOTE | 2025-04-24 10:33 | A.OFFPC_ITS ---
Vital Signs 04/24/25 10:35 Height 5 ft 6 in Weight 217 lb 2 oz BMI 35.0 BP 152/98 H Blood Pressure Location Lt brachial Position Sitting Pulse 80 Pulse Source Pulse Oximeter Pulse Oximetry (%) 98 Intake Visit Reasons: Elevated BP Operations Lead Required: No Accompanied by: Self / Same As Patient Allergies penicillin G Allergy (Unknown, Verified 04/24/25 10:42) Unknown Medication List - Last Reconciled 04/24/25 by Michael Sandhu PA-C hydrochlorothiazide 25 mg PO QAM lisinopril 5 mg PO DAILY Tobacco use date assessed: 04/24/25 Dental Screening Dental Screen Date: 04/24/25 HPI Elevated BP HPI Details Patient is a 44-year-old female here today for problem visit. Today she has multiple concerns and problems. Patient has a past history significant for hypothyroidism, hypertension, impaired glucose metabolism and obesity. : Chronic fatigue: The patient reports chronic fatigue that has worsened over time, making daily activities challenging. She attributes this to neglecting her health while caring for her mother, who was recently hospitalized for cardiac issues. Hypertension: Today's blood pressure in office elevated has been elevated recently.. She experiences palpitations and elevated blood pressure despite taking hydrochlorothiazide. She has not started lisinopril due to not receiving the medication. . Concern-- > The patient has a history of diverticulitis diagnosed via CT scan at the ER, treated with antibiotics and pain medication. She continues to experience abdominal tenderness, raising concerns about incomplete recovery. She also reports numbness and tingling in her arm, which she attributes to stress and anxiety. She also mentions blurred vision and headaches, possibly related to her hypertension. Impaired glucose metabolism : The patient was previously borderline diabetic and was prescribed metformin, which she discontinued after completing the initial course. [facility] Medical History Vitamin D deficiency Multinodular thyroid Hypothyroidism Surgical History H/O surgical procedure History of partial thyroidectomy Family History Father No problems noted. Mother No problems noted. 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 1. Little interest or pleasure in doing things: nearly every day 2. Feeling down, depressed, or hopeless: several days 3. Trouble falling or staying asleep, or sleeping too much: several days 4. Feeling tired or having little energy: nearly every day 5. Poor appetite or overeating: not at all 6. Feeling bad about yourself - or that you are a failure or have let yourself or your family down: not at all 7. Trouble concentrating on things, such as reading the newspaper or watching television: not at all 8. Moving or speaking so slowly that other people could have noticed. Or the opposite - being so fidgety or restless that you have been moving around a lot more than usual: not at all 9. Thoughts that you would be better off or of hurting yourself in some way: not at all Total score: 8 Depression Screening Interpretation: Positive Depression Screening Follow-up: Existing condition Depression Screening Done: Yes 06465 - PHQ-9 Billing: Yes Source: Developed by Drs. Syed Blake, Mariah Phillips, Gt Boland and colleagues, with an educational refugio from [employer]. Thrive Questionnaire Date Thrive assessed: 04/24/25 I am a: Patient What is your living situation today?: I have a steady place to live Within the past 12 months, did the food you bought not last and you didn't have the money to get more?: Never true Within the past 12 months, did you worry whether your food would run out before you got money to buy more?: Never true Do you have trouble paying for medicines?: No Do you have trouble getting transportation to medical appointments?: No Do you have trouble paying your heating and electricity bill?: No Do you have trouble taking care of your child, family member or friend?: No Do you have trouble with day-to-day activities such as bathing, preparing meals, shopping, managing finances, etc.?: No Are you currently unemployed and looking for a job?: No Are you interested in more education?: No Please select the resources that you would like help with: None Currently or been in a relationship where the following occur: No concerns reported THRIVE Score: 0 AUDIT C Alcohol Use Questionnaire (AUDIT-C) 1. How often do you have a drink containing alcohol?: Never Total Score: 0 ELAINE-7 AMB Questionnaire ELAINE-7 Date ELAINE - 7 assessed: 04/24/25 Feeling nervous, anxious, or on edge: 0 = Not at all Not being able to stop or control worryin = Several days Worrying too much about different things: 0 = Not at all Trouble relaxin = Nearly every day Being so restless that it is hard to sit still: 1 = Several days Becoming easily annoyed or irritable: 1 = Several days Feeling afraid as if something awful might happen: 0 = Not at all Total ELAINE-7 score (0-4 normal; 5-9 mild; 10-14 moderate; 15-21 severe): 6 Source: Developed by Drs. Syed Blake, Mariah Phillips, Gt Boland and colleagues, with an educational refugio from [employer]. ELAINE-7 Assessment Billing ELAINE-7 Assessment Tool: ELAINE-7 Assessment 90413 Review of Systems Const Denies headache(s) Eyes Denies loss of vision ENT Denies vertigo, Denies dizziness, Denies headache(s) and Denies sore throat Card Denies chest pain, Denies leg edema and Denies lightheadedness Resp Denies cough, Denies hemoptysis and Denies wheezing GI Denies abdominal pain, Denies melena, Denies constipation, Denies diarrhea and Denies vomiting Denies urinary frequency, Denies dysuria and Denies urinary urgency Musc Denies arthralgias, Denies joint swelling, Denies numbness and Denies tingling Neuro Denies Abnormal speech present, Denies behavioral changes, Denies vertigo, Denies dizziness, Denies headache(s), Denies loss of vision, Denies memory loss, Denies numbness and Denies tingling Psych Denies anxiety, Denies behavioral changes, Denies depression, Denies memory loss and Denies panic attacks Rubens/Lymph Denies easy bleeding and Denies easy bruising Aller/Immun Denies wheezing Physical exam (Primary Care) Vital Signs: Last Vital Signs Pulse 80 04/24/25 10:35 BP 152/98 H 04/24/25 10:35 Pulse Ox 98 04/24/25 10:35 BMI result Body Mass Index 35.0 BMI Assessment/Plan discussion: High BMI High, discussed plan: lifestyle, weight reduction, dietary and physical activity Tobacco/Smoking Status: Tobacco use Status Tobacco use date assessed 04/24/25 04/24/25 10:40 Patient Tobacco Use Status Never used Tobacco 04/24/25 10:40 e-Cigarette/Vaping Use Never Used 04/24/25 10:40 PHQ-9: PHQ-9 Score PHQ-9: Total score 8 04/24/25 10:40 Depression Screening Interpretation: Positive Depression Screening Follow-up: Existing condition Thrive Assessment: Date of Thrive Assessment Date Thrive assessed 04/24/25 04/24/25 10:40 Currently or been in a relationship where the following occur: No concerns reported Const General: healthy appearing, no acute distress, alert and awake Nutritional Appearance: well nourished Orientation/consciousness: oriented to person, oriented to place and oriented to time HENMT Ears: TM's normal bilaterally General nose exam: Normal nasal mucous membranes and turbinates present Eyes Conjunctivae: conjunctivae normal Sclerae: sclerae normal Pupils: Equal, round and reactive pupils present Neck Neck: Yes no lymphadenopathy and Yes no JVD Thyroid: Thyroid normal Carotids: no bruits Resp Effort & Inspection: normal respiratory effort and not tachypneic Auscultation: no crackles, no rales, no rhonchi and no wheezes Cardio Rate: regular rate Rhythm: regular rhythm Heart sounds: no murmurs and normal S1 and S2 GI Palpation (GI): Soft to palpation, nontender, no hepatomegaly and no splenomegaly Auscultation: normal bowel sounds Skin General skin exam: no rashes or lesions noted and dry skin Neuro General: oriented to person, oriented to place and oriented to time Cranial nerves: Yes Equal, round and reactive pupils present Speech: No Abnormal speech present Gait exam (Neuro): Normal gait present Motor exam (neuro): no tremor noted Extrem Right upper extremity: full ROM Left upper extremity: full ROM Right lower extremity: full ROM; no edema Left lower extremity: full ROM; no edema Psych Mental Status: mental status grossly normal Speech and movement: Normal speech and movement present Affect: normal affect Attitude: cooperative Thought process: Normal thought process present Coding Level of Care Code Est Pt Level 4 (81222) Diagnoses Primary hypertension I10 Hypertension type: primary hypertension Diverticulitis K57.92 Right hand paresthesia R20.2 Class 2 obesity E66.812 Impaired glucose metabolism R73.09 Acquired hypothyroidism E03.9 Hypothyroidism type: acquired ELAINE (generalized anxiety disorder) F41.1 Additional Codes ELAINE-7 Assessment Billing - ELAINE-7 Assessment Tool: ELAINE-7 Assessment 93439 ([id number]) PHQ-9 - 43171 - PHQ-9 Billing: Yes ([id number]) Assessment & Plan Assessment & Plan (1) HTN (hypertension): Code(s): I10 - Essential (primary) hypertension Category: Medical Qualifiers: Hypertension type: primary hypertension Qualified Code(s): I10 - Essential (primary) hypertension Plan: Patient's blood pressure elevated today in office. The patient is currently on hydrochlorothiazide for hypertension management, but her blood pressure remains elevated at 152/98 mmHg. Lisinopril 5 mg is recommended to be added to her regimen to better control her blood pressure. ] Goal blood pressures to be below 140/90 (2) Diverticulitis: Code(s): K57.92 - Diverticulitis of intestine, part unspecified, without perforation or abscess without bleeding Category: Medical Plan: The patient was diagnosed with diverticulitis via CT scan and treated with antibiotics and pain medication. She continues to experience abdominal tenderness, and a follow-up course of antibiotics is considered to ensure complete resolution of symptoms. (3) Right hand paresthesia: Code(s): R20.2 - Paresthesia of skin Category: Medical Plan: Will consider EMG and nerve velocity testing. (4) Class 2 obesity: Code(s): E66.812 - Obesity, class 2 Category: Medical Plan: Patient does understand her BMI is over 35 and will try to work on being more physically active and adapting to better eating habits to reduce her weight (5) Impaired glucose metabolism: Code(s): R73.09 - Other abnormal glucose Category: Medical Plan: The patient was previously on metformin for borderline diabetes but discontinued it after completing the initial course. Blood sugar levels will be monitored to assess the need for reinitiating treatment. (6) Hypothyroidism: Code(s): E03.9 - Hypothyroidism, unspecified Category: Medical Qualifiers: Hypothyroidism type: acquired Qualified Code(s): E03.9 - Hypothyroidism, unspecified Plan: Patient is followed by endocrinology thyroid specialist here in [place]. She is due for labs evaluate her TSH. Has a history of a partial thyroidectomy, has been having some difficulty with swallowing she is discussing with her thyroid specialist. (7) ELAINE (generalized anxiety disorder): Code(s): F41.1 - Generalized anxiety disorder Category: Medical Plan: Patient's ELAINE-7 score positive for anxiety. The patient reports anxiety, which may be contributing to her symptoms of numbne ss and tingling in the arm. Management will focus on addressing underlying stressors and monitoring symptoms. Medications: New metronidazole 500 mg PO BID 10 tabs 0RF 5 days K52.9 - Noninfective gastroenteritis and colitis, unspecified, K57.92 - Diverticulitis of intestine, part unspecified, without perforation or abscess without bleeding levofloxacin 500 mg PO DAILY 5 tabs 0RF 5 days K57.92 - Diverticulitis of intestine, part unspecified, without perforation or abscess without bleeding Changed From hydrochlorothiazide 25 mg PO QAM I10 - Essential (primary) hypertension To hydrochlorothiazide 25 mg PO QAM 90 tabs 1RF 90 days I10 - Essential (primary) hypertension From lisinopril 5 mg PO DAILY 30 tabs 2RF I10 - Essential (primary) hypertension To lisinopril 5 mg PO DAILY 90 tabs 1RF 90 days I10 - Essential (primary) hypertension
[2025-04-24 10:35] VITALS: BP 152/98; PULSE 80; O2SAT 98; BMI 35.0
== END 2025-04-24 10:58 | disposition home or self-care (01) ==
LOC: HO.HMCH 10:27
PROVIDERS: PCP Physician Assistant; Visit Provider Physician Assistant
DX: I10 Essential (primary) hypertension (principal); K57.92 Diverticulitis of intestine, part unspecified, without perforation or abscess without bleeding; E66.812 Obesity, class 2; Z68.35 Body mass index [BMI] 35.0-35.9, adult; R20.2 Paresthesia of skin; R73.09 Other abnormal glucose; E03.9 Hypothyroidism, unspecified; F41.1 Generalized anxiety disorder

== ENCOUNTER → 2025-04-24 11:12 | Outpatient (BNV) | payer OTHER, SELFPAY | PROVIDERS: PCP Physician Assistant; Visit Provider Radiology Diagnostic Radiology | DX: R91.8 Other nonspecific abnormal finding of lung field (principal) | CPT/HCPCS: 71046 ==

== ENCOUNTER 2025-06-26 10:06 | Outpatient (AMB) | payer OTHER, SELFPAY ==
[2025-06-26 10:17] VITALS: BP 136/98; PULSE 95; O2SAT 98; BMI 36.0
--- NOTE | 2025-06-26 10:17 | MHC.OFFVIS ---
Vital Signs 06/26/25 10:17 Height 5 ft 6 in Weight 223 lb 5.252 oz BMI 36.0 BP 136/98 H Blood Pressure Location Lt brachial Position Sitting Pulse 95 Pulse Source Pulse Oximeter Pulse Oximetry (%) 98 Oxygen Delivery Method Room Air Intake Visit Reasons: Hypothyroidism Intake Note: Patient present today for Hypothyroidism office visit. 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 HPI She was previously followed by Dr. Bishop, last visit December 2022 Apparently prior to that she was at [facility], however was discharged from the practice because of no shows. 03/18/2016: Ultrasound of the thyroid per chart review revealed numerous bilateral thyroid nodules. 05/29/2016: FNA of the right-sided dominant (right mid lower 1.7 X1.2 X 0.9 cm) nodule was Jamieson category 2, benign cytology. Apparently additional FNA of a left sided nodule was atypical, however subsequently she had a left-sided thyroid lobectomy 06/24/2016 with pathology consistent with multinodular goiter with focal nuclear atypia and no evidence of malignancy. Then she was lost to follow up. And then she reestablished care with Dr. Bishop in 2019. 11/10/2019: FNA of the right midpole nodule with benign cytology. Also has a history of hypothyroidism. Was apparently on levothyroxine 50 mcg daily but then stopped it sometime in 2020. Ultrasound thyroid from 05/21/2021 showed a right midpole subcentimeter TR 3 nodule, a right midpole 1 cm TR 3 nodule, right superior subcentimeter TR 1 nodule. Plan was for her to follow up with repeat imaging in about a year when she was last seen in December [address] Bishop, but seems like she did not follow up. Patient currently denies heat or cold intolerance, diarrhea or constipation, hair loss, anxiety, weight changes, mood changes,, changes in appearance of eyes or vision changes, tremors, increased diaphoresis or dry skin. ?Reports tiredness. reports some intermittent palpitations. Reports some difficulty swallowing for the past 6 months. Intermittent hoarsenss. reports some neck fullness over the past few months. Patient denies any history of childhood neck radiation. Denies having ever used lithium, amiodarone or biotin supplements. Patient denies any family history of thyroid cancer. neice and sister had thyroid issues. Interval history 06/26/2025 Has a ultrasound thyroid scheduled for 07/24/2025, did not do it before this appointment Blood work from 04/24/2025 shows normal TSH and free T4 Physical exam General: sitting comfortably in no acute distress HEENT: normocephalic/atraumatic, Neck: supple, Cardiac: normal heart sounds Pulm: normal breath sounds B/L, no added breath sounds Abd: not distended, no tenderness Extremities: no edema, no signs of myxedema Neuro: AAO x3, Speech: normal, no facial droop, moving all 4 extremities Laboratory Tests 09/20/24 08:35 TSH 3.59 Free T4 0.95 Laboratory Tests 04/24/25 11:32 TSH 2.64 Free T4 0.85 US THYROID 05/21/21 CLINICAL INFORMATION: Hypothyroidism. COMPARISON: Ultrasound soft tissue head/neck thyroid dated 02/15/2019. TECHNIQUE: Linear transducer grayscale and color Doppler examination with attention to the region of the thyroid. FINDINGS: SIZE: Measurements of the thyroid lobes and nodules are given in sagittal, anteroposterior and transverse dimensions respectively. Right Thyroid Lobe: 5.2 x 1.8 x 2.1 cm, volume 10.2 mL. Previously 5.2 x 1.6 x 1.7 cm, volume 7.4 mL. Parenchyma: The gland echotexture is homogeneous. Thyroid vascularity is normal. Left Thyroid Lobe: Surgically removed. Isthmus: 0.2 cm in maximum AP dimension. Previously 0.2 cm. Comparison with previous exam is difficult. Estimated total number of nodules greater than or equal to 1 cm: 1. 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 Location: Right mid. Size: 0.3 x 0.4 x 0.3 cm, volume 0.02 mL. Previously: n/a Nodule characteristics: Composition: Mixed cystic and solid (1). Echogenicity: Hypoechoic (2). Shape: Not taller than wide (0). Margins: Smooth (0). Echogenic Foci: None (0). ACR TI-RADS total points: 3 Previous: n/a ACR TI-RADS category: 3 Previous: n/a Significant change in size (>/= 20% in 2 dimensions and minimal increase of 2 mm or 50% or greater increase in volume): Change in features: Change in ACR TI-RADS risk category: n/a 2. Location: Right mid. Size: 1.0 x 1.1 x 0.9 cm, volume 0.5 mL. Previously: 1.2 x 0.8 x 0.9 cm, volume 0.3 mL. Nodule characteristics: Composition: Mixed cystic and solid (1). Echogenicity: Hypoechoic (2). Shape: Not taller than wide (0). Margins: Smooth (0). Echogenic Foci: None (0). ACR TI-RADS total points: 3 Previous: n/a ACR TI-RADS category: 3 Previous: n/a Significant change in size (>/= 20% in 2 dimensions and minimal increase of 2 mm or 50% or greater increase in volume): Change in features: Change in ACR TI-RADS risk category: n/a 3. Location: Right superior. Size: 0.5 x 0.4 x 0.3 cm, volume 0.03 mL. Previously: n/a. Nodule characteristics: Composition: Cystic(0). ACR TI-RADS total points: 0 ACR TI-RADS category: 1 NODES: No lymphadenopathy is seen in the tissue surrounding the thyroid gland. US/US thyroid IMPRESSION: Comparison with previous exam is difficult. The dominant 1 cm nodule in the right middle lobe does not appear appreciably changed. There are 2 newly appreciated nodules in the mid and superior right lobe and the previously identified nodules in the mid and lower right lobe on prior exam are not appreciated. [facility] Medical History Vitamin D deficiency Multinodular thyroid Hypothyroidism Surgical History H/O surgical procedure History of partial thyroidectomy Family History Father No problems noted. Mother No problems noted. 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 She was last seen in 2022, in the plan was for her to come back in 1 year with a repeat ultrasound but then she did not follow up.03/18/2016: Ultrasound of the thyroid per chart review revealed numerous bilateral thyroid nodules. 05/29/2016: FNA of the right-sided dominant (right mid lower 1.7 X1.2 X 0.9 cm) nodule was Jamieson category 2, benign cytology. Apparently additional FNA of a left sided nodule was atypical, however subsequently she had a left-sided thyroid lobectomy 06/24/2016 with pathology consistent with multinodular goiter with focal nuclear atypia and no evidence of malignancy. Then she was lost to follow up. And then she reestablished care with Dr. Bishop in 2019. 11/10/2019: FNA of the right midpole nodule with benign cytology. Also has a history of hypothyroidism. Was apparently on levothyroxine 50 mcg daily but then stopped it sometime in 2020. Most recent TSH and free T4 normal from April 2025. Does not need the medication anymore. Ultrasound thyroid from 05/21/2021 showed a right midpole subcentimeter TR 3 nodule, a right midpole 1 cm TR 3 nodule, right superior subcentimeter TR 1 nodule. Plan was for her to follow up with repeat imaging in about a year when she was last seen in December [address] Bishop, but seems like she did not follow up. At this point she is reporting new compressive symptoms. She was supposed to also do thyroid ultrasound prior to this appointment but has it scheduled for 07/24/2025. Plan: -do ultrasound of the thyroid -follow up in after thyroid ultrasound to discuss results Plan See above Coding Level of Care Code Est Pt Level 3 (17613) Diagnoses Multinodular thyroid E04.2
--- OUTSIDE RECORDS SUMMARY | 2025-06-26 11:54 | XMS_ITS | Clinical Summary ---
Author Organization [facility] Address [address] [place] [address] Phone Care Team Providers Care Bottle Cleaner Name Role Phone Physician, Pcp Unknown Primary Care Provider Antonella vailable Allergies Active Allergy Reactions Criticality Noted Date Comments Amoxicillin Hives 05/23/2015 Penicillins Hives 05/23/2015 Medications gabapentin (NEURONTIN) 300 mg capsule Start with one cap po QHS x 3 days, increase to one cap po BID x 3 days, then increase to one cap po TID 05/13/2017 Active oxyCODONE (OXY-IR) 5 mg immediate release capsule Take 1 capsule (5 mg total) by mouth every 6 (six) hours if needed for severe pain. 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 Fibromyalgia 05/13/2017 Fibroid, uterine 07/02/2015 Multiple thyroid nodules 05/23/2015 Obesity 05/23/2015 Social History Tobacco Use Types Packs/Day Years [...] Screening: P ap Smear 07/02/2018 07/02/2015, 07/02/2015 Depression Screening 10/19/2024 Cholesterol Screening (Lipid Panel) 11/15/2024 Social Influencers of Health Screening 11/15/2024 COVID-19 Vaccine (4 - 2024-2 6 season) 2025 08/07/2021, 07/17/2021, 12/28/2020 Influenza Vaccine (#1) 2025 DTaP,Tdap,and Td Vaccines [...] 5 Years) and At-Risk Patients (6 to 49 Years) Aged Out No longer eligible b ased on patient's age to complete this topic RSV Immunization Patients Under 20 months Aged Out No longer eligible b ased on patient's age to complete this topic Varicella Vaccines Aged Out No longer eligible based on patient's age to complete this topic Procedures Procedure Name Priority Date/Time Associated Diagnosis Comments HEPATITIS C SCREENING Routine 07/02/2015 HIV SCREENING Routine 07/02/2015 HPV Routine 07/02/2015 from Last 3 Months or Most Recently Relevant to Health Maintenance Results * Cervical Cancer Screening: HPV (07/02/2015) Pathologist [facility] Cervical Cancer Screening: HPV Negative, Abstracted [facility] Provider MD HEALTH MAINTENANCE Final Result * HIV Screening (07/02/2015) [facility] HIV Screening Abstracted [facility] Provider MD HEALTH MAINTENANCE Final Result * Hepatitis C Screening (07/02/2015) Pathologist [facility] Hepatitis C Screening Abstracted [facility] Provider MD HEALTH MAINTENANCE Final Result from Last 3 Months or Most Recently Relevant to Health Maintenance Insurance [facility] [employer] Care Teams Bottle Cleaner Relationship Specialty Start Date End Date Physician, Pcp Unknown PCP - General 03/24/25
--- OUTSIDE RECORDS SUMMARY | 2025-06-26 11:54 | XMS_ITS | Clinical Summary ---
Author Organization [facility] Address [address] [place] [address] Care Team Providers Care Shipwright Apprentice Name Role Phone Unavailable Primary Care Provider Unavailabl e Social History Tobacco Use Types Packs/Day Years Used Date Smoking Tobacco: Never Assessed Sex and Gender Information Value Date Recorded Sex Assigned at Not on file Gender Identity Not on file Sexual Orientation Not on file Plan of Treatment Not on file
== END 2025-06-26 10:35 | disposition home or self-care (01) ==
LOC: HO.ENCR 10:07
PROVIDERS: PCP Physician Assistant; Visit Provider Student in an Organized Health Care Education/Training Program
DX: E04.2 Nontoxic multinodular goiter (principal)
CPT/HCPCS: 99213

== ENCOUNTER → 2025-06-26 10:06 | Outpatient (BNVA) | payer OTHER, SELFPAY | PROVIDERS: PCP Physician Assistant; Visit Provider Student in an Organized Health Care Education/Training Program | DX: E04.2 Nontoxic multinodular goiter (principal) | CPT/HCPCS: 99212 ==

== ENCOUNTER 2025-09-07 09:53 | Outpatient (REF) | payer OTHER, SELFPAY ==
--- NOTE | ~2025-09-07 | US_ITS ---
EXAMINATION: US THYROID HISTORY: E04.2 - Nontoxic multinodular goiter TECHNIQUE: Real-time grayscale ultrasound imaging was performed and images were reviewed. COMPARISON: Comparison is made with the prior examination dated 05/21/2021. FINDINGS: SIZE: The right thyroid lobe measures 5.2 x 1.8 x 2.0 cm. The left thyroid lobe is surgically absent. The isthmus measures 2 mm. FLOW: Flow to the gland is normal. ECHOGENICITY: The echotexture of the gland is heterogeneous. NODULES: Again seen is a 7 x 3 x 6 mm cyst at the upper pole and a 5 x 3 x 5 mm cyst in the interpolar region. Solid nodules are identified as described below: Nodule #: 1 Location: Right lower pole measuring 10 x 7 x 10 mm (not seen previously). Shape: Wider than tall (0 points) Margins: Smooth (0 points) Echotexture: Indeterminate (1 point) Composition: Mostly solid (2 points) Calcifications: None (0 points) Total points: 3 TIRADS: TR3: Mildly suspicious. Nodule #: 2 Location: Midportion of the right thyroid lobe measuring 12 x 10 x 12 mm (previously 11 x 9 x 10 mm). Shape: Taller than wide (3 points) Margins: Smooth (0 points) Echotexture: Isoechoic (1 point) Composition: Solid (2 points) Calcifications: None (0 points) Total points: 3 TIRADS: TR3: Mildly suspicious. US/US thyroid IMPRESSION: Status post left thyroidectomy. Right thyroid nodules as described above. ACR TI-RADS Guidelines TR1 (0 points): Benign. No follow-up or biopsy required TR2 (2 points): Not Suspicious. No biopsy or follow up indicated TR3 (3 points): Mildly Suspicious. FNA if >= 2.5 cm, Follow if >= 1.5 cm TR4 (4-6 points): Moderately Suspicious. FNA if >= 1.5 cm, Follow if >= 1.0 cm TR5 (>=7 points): Highly Suspicious. FNA if >= 1.0 cm, Follow if >= 0.5 cm Electronically signed by: Syed Branham MD 09/07/2025 11:45 AM EST
--- OUTSIDE RECORDS SUMMARY | 2025-09-07 14:19 | XMS_ITS | Clinical Summary ---
Author Organization [facility] Address [address] [place] [address] Care Team Providers Care Starting Gate Driver Name Role Phone Unavailable Primary Care Provider Unavailabl e Social History Tobacco Use Types Packs/Day Years Used Date Smoking Tobacco: Never Assessed Sex and Gender Information Value Date Recorded Sex Assigned at Not on file Gender Identity Not on file Sexual Orientation Not on file Plan of Treatment Not on file
== END 2025-09-07 09:54 | disposition home or self-care (01) ==
LOC: HO.US 09:53
PROVIDERS: PCP Physician Assistant; Visit Provider Student in an Organized Health Care Education/Training Program
DX: E04.2 Nontoxic multinodular goiter (principal)
CPT/HCPCS: 76536

== ENCOUNTER → 2025-09-07 09:54 | Outpatient (BNV) | payer OTHER, SELFPAY | PROVIDERS: PCP Physician Assistant; Visit Provider Radiology Diagnostic Radiology | DX: E04.2 Nontoxic multinodular goiter (principal) | CPT/HCPCS: 76536 ==

== ENCOUNTER 2025-09-27 08:38 | Outpatient (AMB) | payer OTHER, SELFPAY ==
--- NOTE | 2025-09-27 08:39 | A.OFFVIS_ITS ---
Vital Signs 09/27/25 08:40 Height 5 ft 6 in Weight 220 lb 7.396 oz BMI 35.6 BP 158/108 H Blood Pressure Location Rt brachial Position Sitting Pulse 88 Pulse Source Pulse Oximeter Pulse Oximetry (%) 98 Oxygen Delivery Method Room Air Intake Visit Reasons: Hypothyroidism Thyroid Ultrasound Results Intake Note: Patient presents here today for Hyperparathyroidism follow-up after completion of work-up. Patient last seen by Dr Rebekah MD. Thyroid Ultrasound: Completed on 09/07/2025 Manager Financial Required: No Accompanied by: Self / Same As Patient Allergies penicillin G Allergy (Unknown, Verified 09/27/25 08:46) Unknown HPI Comments Details: 44-year-old female coming in today for follow up of multinodular goiter status post left hemithyroidectomy in 2015 and hypothyroidism. Previously seen by Dr. Welch in Jun 2025. This is my first time seen this patient. HPI She was previously followed by Dr. Bishop, last visit December 2022 Apparently prior to that she was at [facility], however was discharged from the practice because of no shows. 03/18/2016: Ultrasound of the thyroid per chart review revealed numerous bilateral thyroid nodules. 05/29/2016: FNA of the right-sided dominant (right mid lower 1.7 X1.2 X 0.9 cm) nodule was [place] category 2, benign cytology. Apparently additional FNA of a left sided nodule was atypical, however subsequently she had a left-sided thyroid lobectomy 06/24/2016 with pathology consistent with multinodular goiter with focal nuclear atypia and no evidence of malignancy. Then she was lost to follow up. And then she reestablished care with Dr. Bishop i n 2019. 11/10/2019: FNA of the right midpole nodule with benign cytology. Also has a history of hypothyroidism. Was apparently on levothyroxine 50 mcg daily but then stopped it sometime in 2020. Ultrasound thyroid from 05/21/2021 showed a right midpole subcentimeter TR 3 nodule, a right midpole 1 cm TR 3 nodule, right superior subcentimeter TR 1 nodule. Plan was for her to follow up with repeat imaging in about a year when she was last seen in December [address] Bishop, but seems like she did not follow up. Patient currently denies heat or cold intolerance, diarrhea or constipation, hair loss, anxiety, weight changes, mood changes,, changes in appearance of eyes or vision changes, tremors, increased diaphoresis or dry skin. ?Reports tiredness. reports some intermittent palpitations. Reports some difficulty swallowing for the past 6 months. Intermittent hoarsenss. reports some neck fullness over the past few months. Patient denies any history of childhood neck radiation. Denies having ever used lithium, amiodarone or biotin supplements. Patient denies any family history of thyroid cancer. neilda and sister had thyroid issues. Has a ultrasound thyroid scheduled for 07/24/2025, did not do it before this appointment Blood work from 04/24/2025 shows normal TSH and free T4 Interval history: Patient reports having low energy She reports a previous diagnosis of chronic fatigue She reports that she has dysphagia to even small sips of water, sometimes even feeling of things stock in her throat She was previously taking it for a short period of time, but she stopped it and her labs did not show hypothyroidism-like results. She cannot recall if she was taking medications during her prior labs Physical exam: General: Well appearing. NAD. Neck/Thyroid: Thyroid not palpable, no nodules. CV: RRR, no murmur. No edema. Resp:Lungs clear to auscultation bilaterally Abdomen: Soft, nontender. nondistended Extremities/Neuro: No weakness or tremor of outstretched hands Laboratory Tests 04/24/25 11:32 TSH 2.64 Free T4 0.85 Laboratory Tests 09/20/24 08:35 TSH 3.59 Free T4 0.95 Laboratory Tests 04/24/25 11:32 TSH 2.64 Free T4 0.85 Thyroid ultrasound 09/07/2025 FINDINGS: SIZE: The right thyroid lobe measures 5.2 x 1.8 x 2.0 cm. The left thyroid lobe is surgically absent. The isthmus measures 2 mm. FLOW: Flow to the gland is normal. ECHOGENICITY: The echotexture of the gland is heterogeneous. NODULES: Again seen is a 7 x 3 x 6 mm cyst at the upper pole and a 5 x 3 x 5 mm cyst in the interpolar region. Solid nodules are identified as described below: Nodule #: 1 Location: Right lower pole measuring 10 x 7 x 10 mm (not seen previously). Shape: Wider than tall (0 points) Margins: Smooth (0 points) Echotexture: Indeterminate (1 point) Composition: Mostly solid (2 points) Calcifications: None (0 points) Total points: 3 TIRADS: TR3: Mildly suspicious. Nodule #: 2 Location: Midportion of the right thyroid lobe measuring 12 x 10 x 12 mm (previously 11 x 9 x 10 mm). Shape: Taller than wide (3 points) Margins: Smooth (0 points) Echotexture: Isoechoic (1 point) Composition: Solid (2 points) Calcifications: None (0 points) Total points: 3 TIRADS: TR3: Mildly suspicious. IMPRESSION: Status post left thyroidectomy. Right thyroid nodules as described above. US THYROID 05/21/21 CLINICAL INFORMATION: Hypothyroidism. COMPARISON: Ultrasound soft tissue head/neck thyroid dated 02/15/2019. TECHNIQUE: Linear transducer grayscale and color Doppler examination with attention to the region of the thyroid. FINDINGS: SIZE: Measurements of the thyroid lobes and nodules are given in sagittal, anteroposterior and transverse dimensions respectively. Right Thyroid Lobe: 5.2 x 1.8 x 2.1 cm, volume 10.2 mL. Previously 5.2 x 1.6 x 1.7 cm, volume 7.4 mL. Parenchyma: The gland echotexture is homogeneous. Thyroid vascularity is normal. Left Thyroid Lobe: Surgically removed. Isthmus: 0.2 cm in maximum AP dimension. Previously 0.2 cm. Comparison with previous exam is difficult. Estimated total number of nodules greater than or equal to 1 cm: 1. Shank Sander nodules are described as follows: 1. Location: Right mid. Size: 0.3 x 0.4 x 0.3 cm, volume 0.02 mL. Previously: n/a Nodule characteristics: Composition: Mixed cystic and solid (1). Echogenicity: Hypoechoic (2). Shape: Not taller than wide (0). Margins: Smooth (0). Echogenic Foci: None (0). ACR TI-RADS total points: 3 Previous: n/a ACR TI-RADS category: 3 Previous: n/a Significant change in size (>/= 20% in 2 dimensions and minimal increase of 2 mm or 50% or greater increase in volume): Change in features: Change in ACR TI-RADS risk category: n/a 2. Location: Right mid. Size: 1.0 x 1.1 x 0.9 cm, volume 0.5 mL. Previously: 1.2 x 0.8 x 0.9 cm, volume 0.3 mL. Nodule characteristics: Composition: Mixed cystic and solid (1). Echogenicity: Hypoechoic (2). Shape: Not taller than wide (0). Margins: Smooth (0). Echogenic Foci: None (0). ACR TI-RADS total points: 3 Previous: n/a ACR TI-RADS category: 3 Previous: n/a Significant change in size (>/= 20% in 2 dimensions and minimal increase of 2 mm or 50% or greater increase in volume): Change in features: Change in ACR TI-RADS risk category: n/a 3. Location: Right superior. Size: 0.5 x 0.4 x 0.3 cm, volume 0.03 mL. Previously: n/a. Nodule characteristics: Composition: Cystic(0). ACR TI-RADS total points: 0 ACR TI-RADS category: 1 NODES: No lymphadenopathy is seen in the tissue surrounding the thyroid gland. US/US thyroid IMPRESSION: Comparison with previous exam is difficult. The dominant 1 cm nodule in the right middle lobe does not appear appreciably changed. There are 2 newly appreciated nodules in the mid and superior right lobe and the previously identified nodules in the mid and lower right lobe on prior exam are not appreciated. [facility] Medical History Vitamin D deficiency Multinodular thyroid Hypothyroidism Surgical History H/O surgical procedure History of partial thyroidectomy Family History Father No problems noted. Mother No problems noted. 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 She was last seen in 2022, in the plan was for her to come back in 1 year with a repeat ultrasound but then she did not follow up. 03/18/2016: Ultrasound of the thyroid per chart review revealed numerous bilateral thyroid nodules. 05/29/2016: FNA of the right-sided dominant (right mid lower 1.7 X1.2 X 0.9 cm) nodule was [place] category 2, benign cytology. Apparently additional FNA of a left sided nodule was atypical, however subsequently she had a left-sided thyroid lobectomy 06/24/2016 with pathology consistent with multinodular goiter with focal nuclear atypia and no evidence of malignancy. Then she was lost to follow up. And then she reestablished care with Dr. Bishop in 2019. 11/10/2019: FNA of the right midpole nodule with benign cytology. Also has a history of hypothyroidism. Was apparently on levothyroxine 50 mcg daily but then stopped it sometime in 2020. Most recent TSH and free T4 normal from April 2025. Does not need the medication anymore. Ultrasound thyroid from 05/21/2021 showed a right midpole subcentimeter TR 3 nodule, a right midpole 1 cm TR 3 nodule, right superior subcentimeter TR 1 nodule. Plan was for her to follow up with repeat imaging in about a year when she was last seen in December [address] Bishop, but seems like she did not follow up. Patient continues to report dyspahgia and bolus sensation, but her thyroid does not seem enlarged enough that could justify having these symptoms. She should have other workp up from GI standpoint to rule out other causes of dysphagia. In terms of thyroid nodules, there are some discordant reports when comparing thyroid US from 2020 to the one in Aug 2025, there is now only 1 nodule that was previously seen (out of 3 reported in 2020)-which did not have a significant change in size, and a newly seen thyroid nodule that measures 1cm. At this point, I think it is reasonable to monitor thyroid nodules with yearly US. Plan: Repat ultrasound of the thyroid in 1 year- Aug 2026 Recheck TSH in 1 year Follow up in 1 year Have dysphagia work up by PCP Plan 30 minutes spent reviewing previous records, labs, imaging, education and documenting in the chart Orders: Orders US thyroid 1 Year E04.2 - Nontoxic multinodular goiter Coding Level of Care Code Est Pt Level 4 (01094) Complex visit Add On G2211 Diagnoses Multinodular thyroid E04.2
[2025-09-27 08:40] VITALS: BP 158/108; PULSE 88; O2SAT 98; BMI 35.6
== END 2025-09-27 10:23 | disposition home or self-care (01) ==
LOC: HO.ENCR 08:39
PROVIDERS: PCP Physician Assistant; Visit Provider Student in an Organized Health Care Education/Training Program
DX: E04.2 Nontoxic multinodular goiter (principal)
CPT/HCPCS: 99214

== ENCOUNTER → 2025-09-27 08:38 | Outpatient (BNVA) | payer OTHER, SELFPAY | PROVIDERS: PCP Physician Assistant; Visit Provider Student in an Organized Health Care Education/Training Program | DX: E04.2 Nontoxic multinodular goiter (principal); Z90.89 Acquired absence of other organs; Z79.899 Other long term (current) drug therapy | CPT/HCPCS: 99212 ==

== ENCOUNTER 2025-10-18 10:24 | Outpatient (AMB) | payer OTHER, SELFPAY ==
[2025-10-18 10:52] VITALS: BP 158/106; PULSE 91; TEMP 36.3; O2SAT 99; BMI 35.7
--- NOTE | 2025-10-18 10:52 | MHC.PC.OV ---
Vital Signs 10/18/25 10:52 Height 5 ft 6 in Weight 221 lb BMI 35.7 BP 158/106 H Blood Pressure Location Lt brachial Position Sitting Pulse 91 Pulse Source Pulse Oximeter Temp 97.3 F Temp Source Temporal Artery Scan Pulse Oximetry (%) 99 Oxygen Delivery Method Room Air Intake Visit Reasons: follow up Allergies penicillin G Allergy (Unknown, Verified 10/18/25 11:17) Unknown Medication List - Last Reconciled 10/18/25 by Michael Sandhu PA-C hydrochlorothiazide 25 mg PO QAM 90 days lisinopril 5 mg PO DAILY 90 days metformin 500 mg PO DAILY 90 days Tobacco use date assessed: 10/18/25 Dental Screening Dental Screen Date: 10/18/25 Did you have a dental visit in the last 12 months?: No Did you have a dental problem in the last 6 months where you did not have access to dental care?: No Was dental information given to patient?: Patient has dentist HPI follow up HPI Details Patient is a 45-year-old female here today for a routine annual physical Today she has multiple concerns and problems. Patient has a past history significant for hypothyroidism, hypertension, impaired glucose metabolism and obesity. : Chronic fatigue: She reports the fatigue has become progressively worse, causing her to struggle to get out of bed and persist throughout the day, which has interfered with her ability to attend school. Her son has also told her that she snores loudly. We suspect she may have obstructive sleep apnea thus will send for home sleep study. .. DYsphagia: For some time, she has had difficulty swallowing liquids, including water, soda, and juice, but not solid foods. She states the second sip of liquid often feels stuck, and she must spit it out. A recent endocrinology evaluation determined her thyroid gland, which has nodules that have shown slight growth over several years, is not the cause of her dysphagia, and her thyroid hormone levels are normal. Hypertension: Today's blood pressure in office elevated has been elevated recently.. She continues on lisinopril 5 and hydrochlorothiazide. PLAN: Will increase her lisinopril to 20 mg and continue with hydrochlorothiazide .. Hypothyroidism: Patient followed by endocrinology, most recent thyroid ultrasound showing right thyroid nodules .. Class 2 obesity: Patient has a difficult time losing weight. She has been on depo shots every 3 months which may be attributing to her weight. She reports she has been eating well and trying to exercise though has been limited due to her ankle issues. . Impaired glucose metabolism : Patient continues on metformin, most recent Vaccines:UTD with COVID and Tdap , declines flu vaccine. Mammogram: Mammogram done in May of 2024-BI-RADS 1 Laboratory Tests 01/22/22 12/23/22 04/24/25 12:46 09:13 11:32 RBC 5.02 Cholesterol 202 H LDL Cholesterol, C alc 109 H 25-OH Vitamin D To irvin 17.6 L TSH 2.68 2.64 Free T4 0.91 [facility] Medical History Vitamin D deficiency Multinodular thyroid Hypothyroidism Surgical History H/O surgical procedure History of partial thyroidectomy Family History Father No problems noted. Mother No problems noted. 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 1. Little interest or pleasure in doing things: nearly every day 2. Feeling down, depressed, or hopeless: several days 3. Trouble falling or staying asleep, or sleeping too much: several days 4. Feeling tired or having little energy: nearly every day 5. Poor appetite or overeating: not at all 6. Feeling bad about yourself - or that you are a failure or have let yourself or your family down: not at all 7. Trouble concentrating on things, such as reading the newspaper or watching television: not at all 8. Moving or speaking so slowly that other people could have noticed. Or the opposite - being so fidgety or restless that you have been moving around a lot more than usual: not at all 9. Thoughts that you would be better off or of hurting yourself in some way: not at all Total score: 8 Depression Screening Interpretation: Positive Depression Screening Follow-up: Existing condition Depression Screening Done: Yes 67569 - PHQ-9 Billing: Yes Source: Developed by Drs. Syed Blake, Mariah Phillips, Gt Boland and colleagues, with an educational refugio from [employer]. Thrive Questionnaire Date Thrive assessed: 04/24/25 I am a: Patient What is your living situation today?: I have a steady place to live Within the past 12 months, did the food you bought not last and you didn't have the money to get more?: Never true Within the past 12 months, did you worry whether your food would run out before you got money to buy more?: Never true Do you have trouble paying for medicines?: No Do you have trouble getting transportation to medical appointments?: No Do you have trouble paying your heating and electricity bill?: No Do you have trouble taking care of your child, family member or friend?: No Do you have trouble with day-to-day activities such as bathing, preparing meals, shopping, managing finances, etc.?: No Are you currently unemployed and looking for a job?: No Are you interested in more education?: No Currently or been in a relationship where the following occur: No concerns reported THRIVE Score: 0 AUDIT C Alcohol Use Questionnaire (AUDIT-C) 1. How often do you have a drink containing alcohol?: Never 3. How often do you have six or more drinks on one occasion?: Never Total Score: 0 ELAINE-7 AMB Questionnaire ELAINE-7 Date ELAINE - 7 assessed: 04/24/25 Feeling nervous, anxious, or on edge: 0 = Not at all Not being able to stop or control worryin = Several days Worrying too much about different things: 0 = Not at all Trouble relaxin = Nearly every day Being so restless that it is hard to sit still: 1 = Several days Becoming easily annoyed or irritable: 1 = Several days Feeling afraid as if something awful might happen: 0 = Not at all Total ELAINE-7 score (0-4 normal; 5-9 mild; 10-14 moderate; 15-21 severe): 6 Source: Developed by Drs. Syed Blake, Mariah Phillips, Gt Boland and colleagues, with an educational refugio from [employer]. ELAINE-7 Assessment Billing ELAINE-7 Assessment Tool: ELAINE-7 Assessment 84618 Review of Systems Const Denies headache(s) Eyes Denies loss of vision ENT Denies vertigo, Denies dizziness, Denies headache(s) and Denies sore throat Card Denies chest pain, Denies leg edema and Denies lightheadedness Resp Denies cough, Denies hemoptysis and Denies wheezing GI Denies abdominal pain, Denies melena, Denies constipation, Denies diarrhea and Denies vomiting Denies urinary frequency, Denies dysuria and Denies urinary urgency Musc Denies arthralgias, Denies joint swelling, Denies numbness and Denies tingling Neuro Denies Abnormal speech present, Denies behavioral changes, Denies vertigo, Denies dizziness, Denies headache(s), Denies loss of vision, Denies memory loss, Denies numbness and Denies tingling Psych Denies anxiety, Denies behavioral changes, Denies depression, Denies memory loss and Denies panic attacks Rubens/Lymph Denies easy bleeding and Denies easy bruising Aller/Immun Denies wheezing Physical exam (Primary Care) Vital Signs: Last Vital Signs Temp 97.3 F 10/18/25 10:52 Pulse 91 10/18/25 10:52 BP 158/106 H 10/18/25 10:52 Pulse Ox 99 10/18/25 10:52 Oxygen Delivery Method Room Air 10/18/25 10:52 BMI result Body Mass Index 35.7 BMI Assessment/Plan discussion: High BMI High, discussed plan: lifestyle, weight reduction, dietary and physical activity Tobacco/Smoking Status: Tobacco use Status Tobacco use date assessed 10/18/25 10/18/25 10:55 Patient Tobacco Use Status Never used Tobacco 10/18/25 10:55 e-Cigarette/Vaping Use Never Used 10/18/25 10:55 PHQ-9: PHQ-9 Score PHQ-9: Total score 8 10/18/25 11:19 Depression Screening Interpretation: Positive Depression Screening Follow-up: Existing condition Thrive Assessment: Date of Thrive Assessment Date Thrive assessed 04/24/25 10/18/25 10:55 Currently or been in a relationship where the following occur: No concerns reported Const General: healthy appearing, no acute distress, alert and awake Nutritional Appearance: well nourished Orientation/consciousness: oriented to person, oriented to place and oriented to time HENMT Ears: TM's normal bilaterally General nose exam: Normal nasal mucous membranes and turbinates present Eyes Conjunctivae: conjunctivae normal Sclerae: sclerae normal Pupils: Equal, round and reactive pupils present Neck Neck: Yes no lymphadenopathy and Yes no JVD Thyroid: Thyroid normal Carotids: no bruits Resp Effort & Inspection: normal respiratory effort and not tachypneic Auscultation: no crackles, no rales, no rhonchi and no wheezes Cardio Rate: regular rate Rhythm: regular rhythm Heart sounds: no murmurs and normal S1 and S2 GI Palpation (GI): Soft to palpation, nontender, no hepatomegaly and no splenomegaly Auscultation: normal bowel sounds Skin General skin exam: no rashes or lesions noted and dry skin Neuro General: oriented to person, oriented to place and oriented to time Cranial nerves: Yes Equal, round and reactive pupils present Speech: No Abnormal speech present Gait exam (Neuro): Normal gait present Motor exam (neuro): no tremor noted Extrem Right upper extremity: full ROM Left upper extremity: full ROM Right lower extremity: full ROM; no edema Left lower extremity: full ROM; no edema Psych Mental Status: mental status grossly normal Speech and movement: Normal speech and movement present Affect: normal affect Attitude: cooperative Thought process: Normal thought process present Coding Level of Care Code Est Pt Level 4 (01099) Diagnoses MARK (obstructive sleep apnea) G47.33 Pharyngeal dysphagia R13.13 Dysphagia type: pharyngeal phase Class 2 obesity E66.812 Primary hypertension I10 Hypertension type: primary hypertension Impaired glucose metabolism R73.09 Acquired hypothyroidism E03.9 Hypothyroidism type: acquired Additional Codes PHQ-9 - 77251 - PHQ-9 Billing: Yes ([id number]) ELAINE-7 Assessment Billing - ELAINE-7 Assessment Tool: ELAINE-7 Assessment 81480 ([id number]) Assessment & Plan Assessment & Plan (1) MARK (obstructive sleep apnea): Code(s): G47.33 - Obstructive sleep apnea (adult) (pediatric) Category: Medical Plan: Patient does report daytime somnolence and family members have reported her snoring and has been having apneic episodes. She has moderate risk for obstructive sleep apnea. Will send patient for home sleep study to [facility] for obstructive sleep apnea. She is interested perhaps trying a GLP 1 if she does have moderate to severe obstructive sleep apnea (2) Dysphagia: Code(s): R13.10 - Dysphagia, unspecified Category: Medical Qualifiers: Dysphagia type: pharyngeal phase Qualified Code(s): R13.13 - Dysphagia, pharyngeal phase Plan: For the dysphagia to liquids, a barium swallow will be ordered to evaluate for an underlying cause such as a stricture or ring. (3) Class 2 obesity: Code(s): E66.812 - Obesity, class 2 Category: Medical Plan: Patient does understand her BMI is over 35 and will try to work on being more physically active and adapting to better eating habits to reduce her weight (4) HTN (hypertension): Code(s): I10 - Essential (primary) hypertension Category: Medical Qualifiers: Hypertension type: primary hypertension Qualified Code(s): I10 - Essential (primary) hypertension Plan: Patient's blood pressure elevated today in office. I will increase her lisinopril dose to 20 mg for better blood pressure control. ] Goal blood pressures to be below 140/90 (5) Impaired glucose metabolism: Code(s): R73.09 - Other abnormal glucose Category: Medical Plan: The patient was previously on metformin for borderline diabetes but discontinued it after completing the initial course. Blood sugar levels will be monitored to assess the need for reinitiating treatment. (6) Hypothyroidism: Code(s): E03.9 - Hypothyroidism, unspecified Category: Medical Qualifiers: Hypothyroidism type: acquired Qualified Code(s): E03.9 - Hypothyroidism, unspecified Plan: Patient is followed by endocrinology thyroid specialist here in [place]. She is due for labs evaluate her TSH. Has a history of a partial thyroidectomy, has been having some difficulty with swallowing she is discussing with her thyroid specialist. Orders: Orders Lipid Panel 10/18/25 E78.9 - Disorder of lipoprotein metabolism, unspecified Hemoglobin A1c 10/18/25 R73.09 - Other abnormal glucose Complete Blood Count no Diff 10/18/25 R73.09 - Other abnormal glucose RT home sleep study 10/18/25 G47.33 - Obstructive sleep apnea (adult) (pediatric) [place] barium swallow 10/18/25 R13.10 - Dysphagia, unspecified Comprehensive [place]. Panel Fast 10/18/25 R73.09 - Other abnormal glucose Medications: New lisinopril 20 mg PO DAILY 90 tabs 1RF 90 days I10 - Essential (primary) hypertension Refilled metformin 500 mg PO DAILY 90 tabs 1RF 90 days R73.09 - Other abnormal glucose Discontinued lisinopril Discontinued Reason: Doctor's Order 5 mg PO DAILY 90 days 90 tabs 1RF I10 - Essential (primary) hypertension
--- OUTSIDE RECORDS SUMMARY | 2025-10-18 11:37 | XMS_ITS | Clinical Summary ---
Author Organization [facility] Prior to 03/18/25 Address [address] [place] [address] Care Team Providers Care Healthcare Manager Name Role Phone Unavailable Primary Care Provider Unavailabl e Social History Tobacco Use Types Packs/Day Years Used Date Smoking Tobacco: Never Assessed Sex and Gender Information Value Date Recorded Sex Assigned at Not on file Gender Identity Not on file Sexual Orientation Not on file Plan of Treatment Not on file
--- OUTSIDE RECORDS SUMMARY | 2025-10-18 11:37 | XMS_ITS | Clinical Summary ---
Author Organization [facility] Address [address] [place] [address] Phone Care Team Providers Care Trial Justice Name Role Phone Physician, Pcp Unknown Primary [...] 07/02/2015 Multiple thyroid nodules 05/23/2015 Obesity 05/23/2015 Medical History Medical History Date Comments Hypertension Disease of thyroid gland Anemia Diverticulitis Social History Tobacco Use Types Packs/Day Years Used Date Smoking Tobacco: Never Assessed Comments Unknown Sex and Gender Information Value Date Recorded Sex Assigned at Not on file Legal Sex Female 3:58 AM EST Gender Identity Not on file Sexual Orientation Not on file Last Filed Vital Signs Vital Sign Reading Time Taken Comments Blood Pressure 160/105 06/26/2025 12:47 PM EDT Pulse 99 06/26/2025 12:47 PM EDT Temperature 36.7 C (98.1 F) 06/26/2025 12:47 PM EDT Respiratory Rate 18 06/26/2025 12:47 PM EDT Oxygen Saturation 100% 06/26/2025 12:47 PM EDT Inhaled Oxygen Concentration - - Weight 101 kg (223 lb) 06/26/2025 12:47 PM EDT Height 167.6 cm (5' 6 ) 06/26/2025 12:47 PM EDT Body Mass Index 35.99 06/26/2025 12:47 PM EDT Plan of Treatment Health Maintenance Due Date Last Done Comments Breast Cancer Screening 1982 HPV Vaccines (3 - 3-dose series) 07/11/2008 04/18/2008, 07/21/2007 Hepatitis B Vaccines (2 of 3 - 19+ 3-dose series) 09/07/2017 08/10/2017 Cervical Cancer Screening: P ap Smear 07/02/2018 07/02/2015 Depression Screening 10/19/2024 Cholesterol Screening (Lipid Panel) 11/15/2024 Social Influencers of Health Screening 11/15/2024 COVID-19 Vaccine (4 - 2024-2 6 season) 2025 08/07/2021, 07/17/2021, 12/28/2020 Influenza Vaccine (#1) 2025 DTaP,Tdap,and Td Vaccines (2 - Td or Tdap) 11/23/2028 11/23/2018 RSV Immunization Adult Patients (1 - 1-dose 75+ series) 2057 HIV Screening Completed 07/02/2015 Hepatitis C Screening [...] SCREENING Routine 07/02/2015 HIV SCREENING Routine 07/02/2015 PAP SMEAR Routine 07/02/2015 from Last 3 Months or Most Recently Relevant to Health Maintenance Results * HIV Screening (07/02/2015) HIV Screening Abstracted [facility] Provider MD HEALTH MAINTENANCE Final Result * Hepatitis C Screening (07/02/2015) Hepatitis C Screening Abstracted [facility] Provider MD HEALTH MAINTENANCE Final Result * Pap Smear (07/02/2015) Pathologist [facility] Pap smear Negative, Abstracted [facility] Provider MD HEALTH MAINTENANCE Final Result from Last 3 Months or Most Recently Relevant to Health Maintenance Insurance [facility] [employer] Care Teams Trial Justice Relationship Specialty Start Date End Date Physician, Pcp Unknown PCP - General 03/24/25
== END 2025-10-18 11:41 | disposition home or self-care (01) ==
LOC: HO.HMCH 10:25
PROVIDERS: PCP Physician Assistant; Visit Provider Physician Assistant
DX: G47.33 Obstructive sleep apnea (adult) (pediatric) (principal); R13.13 Dysphagia, pharyngeal phase; E66.812 Obesity, class 2; I10 Essential (primary) hypertension; R73.09 Other abnormal glucose; E03.9 Hypothyroidism, unspecified

== ENCOUNTER → 2025-10-18 10:24 | Outpatient (BNVA) | payer OTHER, SELFPAY | PROVIDERS: PCP Physician Assistant; Visit Provider Physician Assistant | DX: G47.33 Obstructive sleep apnea (adult) (pediatric) (principal); R13.13 Dysphagia, pharyngeal phase; E66.812 Obesity, class 2; Z68.35 Body mass index [BMI] 35.0-35.9, adult; I10 Essential (primary) hypertension; R73.09 Other abnormal glucose; E03.9 Hypothyroidism, unspecified; R78.9 Finding of unspecified substance, not normally found in blood; Z13.31 Encounter for screening for depression; Z13.39 Encounter for screening examination for other mental health and behavioral disorders; Z09 Encounter for follow-up examination after completed treatment for conditions other than malignant neoplasm | CPT/HCPCS: 96127; 99212 ==